=== PATIENT | male | born 1945 | race Caucasian/White ===

== ENCOUNTER 2017-08-14 03:06 | Emergency (ER) | payer MEDICARE, MEDICAID ==
--- NOTE | 2017-08-14 07:45 | RAD ---
LEFT ELBOW 4 VIEWS: Date: 08/14/17 HISTORY: Fall. Left elbow injury. FINDINGS: Radiocapitellar alignment is maintained. Soft tissue swelling of the olecranon is apparent. Triceps e nthesophyte arises from the posterior aspect of the ulna. There are degenerative changes of the elbow . No acute fracture, dislocation, or fluid distention of the joint capsule. IMPRESSION: Chronic-type findings. No acute osseous abnormalities are demonstrated. POS: TPC
== END 2017-08-14 05:56 | disposition home or self-care (01) ==
LOC: ERS 03:06
DX: M70.22 Olecranon bursitis, left elbow (principal); I48.91 Unspecified atrial fibrillation; E11.9 Type 2 diabetes mellitus without complications; E78.5 Hyperlipidemia, unspecified; I10 Essential (primary) hypertension; Z79.82 Long term (current) use of aspirin; Z79.899 Other long term (current) drug therapy; Z79.84 Long term (current) use of oral hypoglycemic drugs; W19.XXXA Unspecified fall, initial encounter; Y92.129 Unspecified place in nursing home as the place of occurrence of the external cause

== ENCOUNTER 2020-02-20 14:55 | Inpatient (IN) | payer MEDICARE, MEDICAID ==
[~2020-02-20 14:55] MED LIST: EPINEPHrine 1 MG/10 ML Abboject SYRINGE ONE
[2020-02-20] MEDS ORDERED: Acetaminophen 650 MG Suppository ONE ×2 (16:16→16:47)
[2020-02-20] MEDS ORDERED: Cefepime 2 GM VIAL ONE (16:16)
[2020-02-20] MEDS ORDERED: Vancomycin 1 GM/200 ML BAG ONE (16:16)
[2020-02-20 17:00] LABS: Hemoglobin 16.3 g/dL (14.0-18.0); Mean Corpuscular HGB CONC 33.5 g/dL (32.0-36.0); Mean Corpuscular Hemoglobin 31.9 pg (27.0-31.0); Mean Corpuscular Volume 95.1 fL (78.0-98.0); Mean Platelet Volume 9.7 fL (7.4-10.4); Platelet Count 327 thou/uL (130-400); RBC Distribution Width 16.7 % (11.5-14.5); Red Blood Cell (RBC) Count 5.12 mill/uL (4.70-6.10); White Blood Cell (WBC) Count 6.5 thou/uL (4.8-10.8)
[2020-02-20 17:16] LABS: Anisocytosis SLIGHT = 6-15 cells (100X) (0-5/hpf); Band 64 % (5-11); Lymphocytes 2 % (21-51); MDiff Complete? YES; Monocytes 10 % (0-10); Neutrophil 15 % (42-75); Platelet Morphology Comment Appears Adequate; Reactive Lymphocytes 9 % (0-10); Reflex for Review?? YES; Schistocytes SLIGHT = 2-5 cells (100X) (0-1/hpf)
[2020-02-20 17:22] LABS: ALT (SGPT) 20 U/L (8-55); AST (SGOT) 22 U/L (5-34); Albumin 3.5 g/dL (3.4-4.8); Alkaline Phosphatase 83 U/L (40-110); Anion Gap 22 mmol/L (10-20); BUN (Urea Nitrogen) 66 mg/dL (8.4-25.7); Calc. Creatinine Clearance 0 mL/min (70-130); Calcium 8.4 mg/dL (7.8-10.44); Carbon Dioxide 14 mmol/L (23-31); Chloride 126 mmol/L (98-107); Estimated GFR-MDRD 19; Globulin 3.9 g/dL (2.4-3.5); Glucose 161 mg/dL (83-110); Protein, Total 7.4 g/dL (5.8-8.1); Sodium 157 mmol/L (136-145)
[2020-02-20 17:43] LABS: CKMB 1.1 ng/mL (0-6.6)
--- NOTE | 2020-02-20 18:41 | RAD ---
PORTABLE CHEST: History: Covid exposure, increased cough. Comparison: 07-23-14 FINDINGS: Heart size within normal limits. Internal defibrillator device is present. There are no definitive in filtrative lung changes seen. Some minimal increased density in the right midlung field and right bas e are present. No signs of overt failure. IMPRESSION: No definitive infiltrative change. Some minimal changes in the right mid and lower lung ruffin are pr obably within normal limits. It is difficult to exclude subtle ground glass opacity. POS: OFF
[2020-02-20] MEDS ORDERED: Norepinephrine 8 MG/0.9% NS 250 ML ONE (19:34)
[2020-02-20] MEDS ORDERED: Rocuronium Bromide 10 MG/ML (10ML VIAL) ONE (19:47)
--- NOTE | 2020-02-20 19:51 | CT ---
CT OF BRAIN PERFORMED WITHOUT CONTRAST ENHANCEMENT: History: Altered mental status. FINDINGS: The ventricular and cisternal system shows some mild atrophy. There are no signs of intracerebral hem orrhage or extraaxial fluid collections. Mastoid air cells are poorly aerated. This appears to be lar ayala developmental. Visualized sinuses show mucosal change in the left sphenoid air cells. IMPRESSION: No acute intracranial abnormality. POS: OFF
[2020-02-20] MEDS ORDERED: Dextrose 50% Abboject 50 ML SYRINGE SLOW IVP PRN (19:52)
[2020-02-20] MEDS ORDERED: Dextrose 5% in Water 1,000 ML IV PRN (19:52)
[2020-02-20] MEDS ORDERED: fentaNYL Citrate/PF 2,000 MCG in Sodium Chloride 0.9% 60 ML IV SCH (20:15)
--- NOTE | 2020-02-20 20:16 | PDOC.EVN ---
Event Note - Event Note Event Note: [id number] HP dictated
--- NOTE | 2020-02-20 20:41 | RAD ---
CHEST ONE VIEW: History: Intubation Comparison: Earlier exam same day FINDINGS: Endotracheal and NG tubes have been placed. The NG tube side hole is at the level of the GE junction and could be advanced slightly. There has been a definite progression in the appearance of the lungs with increasing changes in the right mid and lower lung ruffin. This could represent patchy infiltrat nicolasa changes. It could be a manifestation of some element of edema although its asymmetry would sugges t that this represents infiltrative change. IMPRESSION: 1. Findings that suggest some patchy infiltrates in the right mid and lower lungs, more prominent andrew n on the earlier exam of the same day. Given the history of Covid positive, this could represent Covi d pneumonia. 2. Endotracheal tube is satisfactory position. NG tube could be advanced slightly for more optimal pl acement. POS: OFF
[2020-02-20 20:44] LABS: Actual Bicarbonate (HCO3a) 13.2 mEq/L (22-28); Analyzer IN Cardio ER; Base Excess (BEa) -12.6 mEq/L (-2.0 to +3.0); CO2 Tension 30.9 mmHg (35.0-45.0); Calcium, Ionized (arterial) 1.19 mmol/L (1.12-1.30); Carboxyhemoglobin (COHb) 0.3 gm% (0.0-3.0); O2 Tension (PaO2), arterial 101.5 mmHg (> 70.0)
[2020-02-20 20:51] LABS: pH, Arterial 7.25 (7.35-7.45)
[2020-02-20 20:52] LABS: ALV-art Gradient 216.375 mmHg (0-20); Puncture Site LBA
[2020-02-20 20:59] LABS: Bacteria/HPF 4+ HPF (None Seen); Bilirubin Negative (Negative); Blood, Urine 3+ (Negative); Clarity Extra Turbid (Clear); Glucose, Urine (Dipstick) Normal (Negative); Ketone, Urine Negative (Negative); Leukocyte 500 Leu/uL (Negative); Nitrite 2+ (Negative); Protein, Urine (Dipstick) 300 mg/dL (Neg-Trace); RBC/HPF Greater than 50 HPF (0-3); Specific Gravity, Urine 1.019 (1.002-1.036); Squamous Epithelial None Seen HPF (0-3); Urobilinogen Normal mg/dL (Less than 2); WBC/HPF Greater than 50 HPF (0-3); pH, Urine 7.5 (5.0-9.0)
[2020-02-20] MEDS ORDERED: Heparin 5,000 UNITS/ML VIAL SC SCH (21:00)
--- NOTE | 2020-02-20 21:11 | HP ---
CHIEF COMPLAINT: Shortness of breath and low oxygen saturation. HISTORY OF PRESENT ILLNESS: Mr. Ernandez is a 74-year-old male with past medical history of atrial fibrillation, type 2 diabetes, hypertension, hypothyroidism, among others was brought from [facility] for evaluation of shortness of breath and low oxygen saturation. The patient has depressed level of consciousness on presentation to the emergency room. The patient's oxygen saturation was low, need to be placed on a non-rebreather mask. Current oxygen saturation is 92% on a non-rebreather mask. Also during the history in the emergency room, his blood pressure dropped. Lab work and chest x-ray showed questionable right lower lobe opacities. The patient was tested positive for COVID-19, exact date is unknown. Also, patient was found to be septic with elevated lactic acid of 3.4, patient was found to be in acute renal failure with a BUN of 66, creatinine of 3.2, hypernatremic with a sodium of 157. CT of the brain no acute finding. The patient is being admitted to the hospital for further management. PAST MEDICAL HISTORY: 1. Atrial fibrillation. 2. Diabetes mellitus, type 2. 3. Hypertension. 4. Hyperlipidemia. 5. Glaucoma. 6. Dysphagia. 7. Hypothyroidism. 8. Cellulitis. PAST SURGICAL HISTORY: Unknown. SOCIAL HISTORY: The patient lives in a long-term facility. No further history can be obtained at this time. FAMILY HISTORY: Unknown. ALLERGIES: NO KNOWN ALLERGIES. CURRENT MEDICATIONS: See home medication reconciliation form for updated medications. REVIEW OF SYSTEMS: Unable to obtain due to patient's underlying medical condition. PHYSICAL EXAMINATION: GENERAL: The patient in moderate respiratory distress. Does not follow commands. VITAL SIGNS: Blood pressure is 88/57, pulse is 94, respiratory rate is 24, temperature 101.2. Oxygen saturation is 92% on nonrebreather. HEAD AND NECK: Normocephalic. NECK: Supple. CHEST: Coarse bilateral breath sounds. Respirations are labored. HEART: Irregularly irregular. ABDOMEN: Soft. Bowel sounds present. NEUROLOGIC: The patient does not follow commands. Moving extremities PSYCHIATRIC: Unable to assess. EXTREMITIES: No clubbing, no cyanosis. LABORATORY DATA: As mentioned above in the history of present illness. IMAGING STUDIES: As mentioned above in the history of present illness. ASSESSMENT AND PLAN: 1. Acute hypoxic respiratory failure. 2. Healthcare associated pneumonia versus COVID-19 infection. 3. COVID-19 virus infection. The patient was tested positive. Exact date is unknown at this time. 4. Diabetes mellitus type 2. 5. Hypernatremia. 6. Acute renal failure. 7. Acute encephalopathy, metabolic. 8. History of hypertension. 9. Atrial fibrillation. PLAN: 1. The patient will be admitted to the hospital. 2. The patient is getting his second liter of fluid bolus right now, I discussed the case with the ER physician. If the patient remains hypotensive, the patient will need central venous catheter insertion and started on vasopressors. 3. We will get a stat arterial blood gases to evaluate for the need for intubation. 4. Septic workup done in the ED including blood cultures. 5. Broad-spectrum IV antibiotics for possible healthcare-associated pneumonia. 6. Isolation precautions for now. 7. Monitor kidney function and urine output. 8. Consider Nephrology consultation in a.m. 9. Consult Pulmonary for evaluation of further recommendations. 10. Reconcile home medications. 11. DVT prophylaxis as appropriate. 12. GI prophylaxis. 13. Expected length of stay, 3 midnights or more. Job ID: [id number]
[2020-02-20 21:46] LABS: Glucose 182 mg/dL (83-110)
[2020-02-20] MEDS ORDERED: Acetaminophen 325 MG Suppository ONE (22:44)
[2020-02-20] MEDS: Dextrose 5 %-0.45 % NaCl 1,000 ML IV SCH (22:50)
[2020-02-20] MEDS: Acetaminophen 650 MG Suppository PR PRN (22:51)
[2020-02-21] MEDS ORDERED: Norepinephrine 8 MG/0.9% NS 250 ML ONE (00:59)
[2020-02-21 01:47] LABS: Glucose 285 mg/dL (83-110)
[2020-02-21] MEDS ORDERED: cefTRIAXone\\ROCEPHIN 1 GM VIAL ONE (04:29)
[2020-02-21] MEDS: Cefepime 1 GM in Sodium Chloride 0.9% 100 ML IVPB SCH ×2 (04:34→17:17)
[2020-02-21] MEDS ORDERED: Vasopressin 20 UNIT, Admixture Fee 1 EACH in Sodium Chloride 0.9% 50 ML IV SCH (05:15)
[2020-02-21 05:17] LABS: Glucose 363 mg/dL (83-110)
[2020-02-21] MEDS ORDERED: EPINEPHrine 1 MG/ML AMP ONE ×2 (05:23)
[2020-02-21 05:24] LABS: ALT (SGPT) 20 U/L (8-55); AST (SGOT) 20 U/L (5-34); Albumin 2.9 g/dL (3.4-4.8); Alkaline Phosphatase 65 U/L (40-110); Anion Gap 19 mmol/L (10-20); BUN (Urea Nitrogen) 74 mg/dL (8.4-25.7); Bilirubin, Total 1.2 mg/dL (0.2-1.2); Calc. Creatinine Clearance 0 mL/min (70-130); Calcium 8.2 mg/dL (7.8-10.44); Carbon Dioxide 13 mmol/L (23-31); Chloride 124 mmol/L (98-107); Estimated GFR-MDRD 14; Globulin 3.7 g/dL (2.4-3.5); Glucose 363 mg/dL (83-110); Potassium 4.4 mmol/L (3.5-5.1); Protein, Total 6.6 g/dL (5.8-8.1); Sodium 152 mmol/L (136-145)
[2020-02-21] MEDS ORDERED: EPINEPHrine 4 MG in Dextrose 5% in Water 250 ML IV SCH (05:30)
[2020-02-21 05:36] LABS: Band 71 % (5-11); Burr Cells SLIGHT = 2-5 cells (100X) (0-1/hpf); Hemoglobin 14.9 g/dL (14.0-18.0); Lymphocytes 3 % (21-51); MDiff Complete? YES; Mean Corpuscular HGB CONC 32.5 g/dL (32.0-36.0); Mean Corpuscular Hemoglobin 30.8 pg (27.0-31.0); Mean Corpuscular Volume 94.6 fL (78.0-98.0); Mean Platelet Volume 9.6 fL (7.4-10.4); Monocytes 6 % (0-10); Neutrophil 20 % (42-75); Platelet Count 346 thou/uL (130-400); RBC Distribution Width 17.1 % (11.5-14.5); Red Blood Cell (RBC) Count 4.83 mill/uL (4.70-6.10); White Blood Cell (WBC) Count 24.8 thou/uL (4.8-10.8)
--- NOTE | 2020-02-21 05:42 | PDOC.EVN ---
Event Note - Event Note Event Note: patient remains hypotensive inspite of max levophed, vasopressin. epi drip ordered. try to call the family number in chart but a message says disconnected. poor prognosis
[2020-02-21] MEDS ORDERED: Acetaminophen 325 MG Suppository ONE (06:45)
[2020-02-21] MEDS: Acetaminophen 650 MG Suppository PR PRN (06:53)
[2020-02-21] MEDS: Famotidine/PF 20 mg/2ml Vial SLOW IVP SCH (09:12)
[2020-02-21] MEDS: Dextrose 5 %-0.45 % NaCl 1,000 ML IV SCH ×2 (09:13→17:23)
[2020-02-21] MEDS: Insulin Regular 300 UNITS/3 ML VIAL SC PRN ×2 (11:00→17:09)
[2020-02-21] MEDS: Dexamethasone 6 MG in Sodium Chloride 0.9% 50 ML IVPB SCH (11:10)
--- NOTE | 2020-02-21 11:33 | CON ---
DATE OF CONSULTATION: HISTORY OF PRESENT ILLNESS: Alok Ernandez is a 74-year-old elderly gentleman, who apparently is from the halfway, was brought in with hypertension and sepsis syndrome. He arrived yesterday at 1524 hours. He is now intubated in the ICU on three pressors. He came from [facility] with a temperature 100.4 and saturations 87% on room air. He was placed in a nonrebreather, saturations were 92%. Obviously, there is no additional information obtained at this time. In the process of trying to contact his family. He was diagnosed to have coronavirus positive pneumonia unknown when. He has multiorgan failure. Apparently, there is some evidence of increasing shortness of breath. PAST MEDICAL HISTORY: Pertinent for what looks like chronic renal failure, congestive heart failure, diabetes, chronic atrial fibrillation. Hypothyroidism. He has been in this institution before. Review of his previous notes appears he has had a cardiac cath in the past. His CT head was done, which shows unremarkable. MEDICATIONS: His nursing medications includes; 1. Metformin 500 twice a day. 2. Losartan 50. 3. Synthroid. 4. Lasix 20. 5. Coreg 25 b.i.d. 6. Aspirin. 7. Amiodarone twice a day. ALLERGIES: APPARENTLY UNKNOWN. PHYSICAL EXAMINATION: VITAL SIGNS: His blood pressure is 90/50, saturations 100%, temperature 100, and respiratory rate 18. CHEST: Decreased breath sounds. I hear no wheezing. CARDIAC: Normal S1 and S2. No gallops. ABDOMEN: Soft. NEUROLOGIC: He is encephalopathic. LABORATORY DATA: White count 24,000, H and H 14 and 45, platelet count is 345, 20 neutrophils, and 71 bands. A pO2 of 101, pCO2 of 30, pH 7.25, rate of 12, 50%, 550 tidal volume, PEEP of 5. Sodium 150, BUN and creatinine 74 and 4.2. Respiratory failure x-ray on admission was normal. Subsequent x-ray shows bilateral infiltrates. He has multiple lab abnormality including creatinine is 4 and BUN is 74. IMPRESSION AND PLAN: 1. Multiorgan failure and sepsis syndrome. 2. Worthington positive pneumonia. 3. Congestive heart failure, renal failure, electrolyte imbalance, advanced age, diabetes. I am in the process of trying to contact family members. He is on Levophed pressors. Still a full code. Stress dose hydrocortisone being added at this stage, along with volume. He may require input from Cardiology and Nephrology if he remains viable and still a full code in the next several days. This is a 45-minute critical care time. Job ID: [id number]
[2020-02-21] MEDS: Hydrocortisone Sod Succ/PF 100 mg/2 ml Vial IVP SCH ×3 (13:36→23:36)
--- NOTE | 2020-02-21 13:49 | PDOC.HOSPP ---
- Subjective Encounter Date: 02/21/20 Encounter Time: 13:48 Subjective: Mr. Ernandez was seen today in follow-up of respiratory failure and sepsis. He is intubated, He will respond to pain, by withdrawing his legs. - Objective Vital Signs & Weight: Vital Signs (12 hours) Pulse Resp BP 02/21/20 12:00 20 02/21/20 11:05 60 107/58 L 02/21/20 10:00 20 02/21/20 08:00 74 94/53 L 02/21/20 07:40 21 H Weight Weight 227 lb 1.218 oz Most Recent Monitor Data Heart Rate from ECG 60 NIBP 100/53 NIBP BP-Mean 68 Respiration from ECG 20 SpO2 100 I&O: 02/20/20 02/21/20 02/22/20 06:59 06:59 06:59 Output Total 45 Balance -45 Result Diagrams: 02/21/20 04:44 02/21/20 04:44 Additional Labs: Accuchecks 02/21/20 11:33 POC Glucose 296 H Hospitalist ROS - Medication Medications: Active Medications Generic Name Dose Route Start Last Admin Trade Name Freq PRN Reason Stop Dose Admin Acetaminophen 650 mg 02/20/20 19:42 02/21/20 06:53 Acetaminophen 650 Mg Suppository [place] 650 mg Q4H PRN Administration Headache/Fever/Mild Pain (1-3) Famotidine 20 mg 02/21/20 09:00 02/21/20 09:12 Famotidine/Pf 20 Mg/2ml Vial SLOW IVP 20 mg DAILY BEBO Administration Hydrocortisone Sodium Succinate 50 mg 02/21/20 12:00 02/21/20 13:36 Hydrocortisone Sod Succ/Pf 100 Mg/2 Ml Vial IVP 02/28/20 12:01 50 mg Q6HR BEBO Administration Cefepime HCl 1 gm/ Sodium 100 mls @ 200 mls/hr 02/21/20 04:00 02/21/20 04:34 Chloride IVPB 100 mls 0400,1600 BEBO Administration Dextrose/Sodium Chloride 1,000 mls @ 100 mls/hr 02/20/20 20:00 02/21/20 09:13 D5 1/2 Ns IV 1,000 mls .Q10H BEBO Administration Fentanyl Citrate 2,000 mcg/ 100 mls @ 0 mls/hr 02/20/20 20:15 02/21/20 11:24 Sodium Chloride IV 02/21/20 20:16 100 mls INF BEBO Administration Protocol Per Protocol Dexamethasone 6 mg/ Sodium 50.6 mls @ 100 mls/hr 02/21/20 09:00 02/21/20 11:10 Chloride IVPB 50.6 mls DAILY BEBO Administration Vasopressin 20 unit/ 51 mls @ 0 mls/hr 02/21/20 05:15 02/21/20 05:06 Miscellaneous Medication 1 IV 51 mls each/ Sodium Chloride INF BEBO Administration Protocol As Directed Epinephrine 4 mg/ Dextrose/ 254 mls @ 0 mls/hr 02/21/20 05:30 02/21/20 05:30 Water IV 254 mls INF BEBO Administration Protocol Titrate - Exam General Appearance: ill appearing Eye: anicteric sclera Heart: RRR, no murmur, no gallops, no rubs, normal peripheral pulses Respiratory: rales (at both bases) Gastrointestinal: soft, non-tender, non-distended, normal bowel sounds, no palpable masses, no hepatomegaly Extremities: no cyanosis, no clubbing, 1+ LE edema Hosp A/P (1) Acute respiratory failure with hypoxemia Code(s): J96.01 - ACUTE RESPIRATORY FAILURE WITH HYPOXIA Status: Acute (2) Pneumonia due to COVID-19 virus Code(s): U07.1 - COVID-19; J12.89 - OTHER VIRAL PNEUMONIA Status: Acute (3) Septic shock Code(s): A41.9 - SEPSIS, UNSPECIFIED ORGANISM; R65.21 - SEVERE SEPSIS WITH SEPTIC SHOCK Status: Acute (4) Acute renal failure Status: Acute (5) Atrial fibrillation Code(s): I48.91 - UNSPECIFIED ATRIAL FIBRILLATION Status: Chronic (6) Diabetes mellitus type 2 in nonobese Code(s): E11.9 - TYPE 2 DIABETES MELLITUS WITHOUT COMPLICATIONS Status: Chronic (7) Hypertension Code(s): I10 - ESSENTIAL (PRIMARY) HYPERTENSION Status: Chronic - Plan * Acute respiratory failure due to COVID pneumonia- he is requiring mechanical ventilation * [facility] has evaluated the patient * Septic shock with multi-organ failure- due to COVID, and now 2/2 blood cultures are positive with gram positive cocci- Will continue broad spectrum antibiotics, and Vancomycin to cover MRSA pending identification. He continues to require pressor support for his blood pressure. He has developed acute kidney injury, with a GFR placing him in the range for dialysis. * Acute kidney injury- due to sepsis- may need Nephrology consult- unfortunately he has no known family. Currently the treating team is trying to locate family members to aid in decision making * DM- continue SSI * HTN- currently hypotensive on Vasopressin * The patient's prognosis is grave. He has COVID oneumonia, with several risk factors which place him at risk for a poor outcome. He is already on mechanical ventilator support. He has multi-organ failure. He is not likely to survive this hospital stay. He is a candidate for Palliative care and the palliative care team has been consulted.
[2020-02-21] MEDS ORDERED: Vancomycin HCl 1 GM in Sodium Chloride 0.9% 250 ML 300 ML IVPB SCH (17:00)
[2020-02-21 18:50] LABS: Vancomycin, Random 7.8 ug/mL (See Comment)
[2020-02-21] MEDS ORDERED: Vancomycin HCl 1.25 GM in Sodium Chloride 0.9% 250 ML 250 ML IVPB SCH (20:00)
[2020-02-21] MEDS ORDERED: DISCONTINUE PREVIOUS NARCOTIC PAIN MEDICATIONS AND BENZODIAZEPINES FS SCH (20:45)
[2020-02-21] MEDS ORDERED: Propofol 1,000 MG/100 ML VIAL IV PRN (20:45)
[2020-02-21] MEDS ORDERED: Fentanyl BOLUS 250 ML IVPB PRN (20:45)
[2020-02-21] MEDS ORDERED: Propofol BOLUS 1,000 MG/100 ML VIAL IV PRN (20:45)
[2020-02-21] MEDS ORDERED: Morphine 2 MG/ML VIAL SLOW IVP PRN (20:45)
[2020-02-21] MEDS: Sodium Chloride 0.45% 1,000 ML IV SCH (21:06)
[2020-02-21] MEDS: Heparin 5,000 UNITS/ML VIAL SC SCH (21:07)
[2020-02-21] MEDS: fentaNYL Citrate/PF 2,000 MCG in Sodium Chloride 0.9% 60 ML IV SCH (21:48)
[2020-02-22] MEDS: Insulin Regular 300 UNITS/3 ML VIAL SC PRN ×5 (01:34→23:12)
[2020-02-22 04:23] LABS: #Lymphocytes 0.8 thou/uL (1.20-3.40); #Monocytes 0.6 thou/uL (0.11-0.59); #Neutrophils 16.2 thou/uL (1.40-6.50); %Basophils 0.2 % (0.0-1.0); %Eosinophils 0.1 % (0.0-10.0); %Lymphocytes 4.7 % (21.0-51.0); %Monocytes 3.3 % (0.0-10.0); %Neutrophils 91.7 % (42.0-75.0); Hemoglobin 13.4 g/dL (14.0-18.0); Mean Corpuscular HGB CONC 31.4 g/dL (32.0-36.0); Mean Corpuscular Hemoglobin 29.6 pg (27.0-31.0); Mean Corpuscular Volume 94.2 fL (78.0-98.0); Mean Platelet Volume 9.2 fL (7.4-10.4); Platelet Count 246 thou/uL (130-400); Red Blood Cell (RBC) Count 4.53 mill/uL (4.70-6.10); White Blood Cell (WBC) Count 17.7 thou/uL (4.8-10.8)
[2020-02-22 04:39] LABS: Anion Gap 13 mmol/L (10-20); BUN (Urea Nitrogen) 66 mg/dL (8.4-25.7); Calc. Creatinine Clearance 35 mL/min (70-130); Calcium 8.5 mg/dL (7.8-10.44); Carbon Dioxide 15 mmol/L (23-31); Estimated GFR-MDRD 23; Glucose 268 mg/dL (83-110); Potassium 3.6 mmol/L (3.5-5.1); Sodium 152 mmol/L (136-145)
[2020-02-22] MEDS: Cefepime 1 GM in Sodium Chloride 0.9% 100 ML IVPB SCH (04:57)
[2020-02-22 04:59] LABS: Chloride 128 mmol/L (98-107)
[2020-02-22] MEDS: Hydrocortisone Sod Succ/PF 100 mg/2 ml Vial IVP SCH ×3 (05:34→17:32)
[2020-02-22] MEDS: Sodium Chloride 0.45% 1,000 ML IV SCH (05:35)
[2020-02-22] MEDS: fentaNYL Citrate/PF 2,000 MCG in Sodium Chloride 0.9% 60 ML IV SCH (07:37)
[2020-02-22 07:48] LABS: Base Excess (BEa) -10.9 mEq/L (-2.0 to +3.0); Calcium, Ionized (arterial) 1.24 mmol/L (1.12-1.30); Carboxyhemoglobin (COHb) 0.5 gm% (0.0-3.0); Hemoglobin (Hb) 13.6 g/dL (14.0-18.0); O2 Tension (PaO2), arterial 169.1 mmHg (> 70.0); Potassium - ABG Lab 4.31 mmol/L (3.70-5.30); pH, Arterial 7.38 (7.35-7.45)
[2020-02-22 07:56] LABS: ALV-art Gradient 303.875 mmHg (0-20); CO2 Tension 20.9 mmHg (35.0-45.0); Puncture Site RRA
--- NOTE | 2020-02-22 08:01 | RAD ---
PORTABLE CHEST: Date: 02/22/2020 HISTORY: Respiratory distress. COMPARISON: Prior day's study. History of COVID exposure. FINDINGS: Endotracheal tube is in satisfactory position. There is some opacification in the right infrahilar re gion and some minimal changes in the left base developing since the prior exam. IMPRESSION: Some right lower lobe infiltrate and some early atelectasis or infiltrate seen in the left base. Matute ges have progressed as compared to the prior study. POS: OFF
[2020-02-22] MEDS: Famotidine/PF 20 mg/2ml Vial SLOW IVP SCH (08:58)
[2020-02-22] MEDS: Heparin 5,000 UNITS/ML VIAL SC SCH ×2 (08:58→21:02)
[2020-02-22] MEDS: Dexamethasone 6 MG in Sodium Chloride 0.9% 50 ML IVPB SCH (09:00)
--- NOTE | 2020-02-22 09:31 | PRG ---
DATE OF SERVICE: 02/22/2020 SUBJECTIVE: Alok Ernandez is a 74-year-old gentleman, who remains in the ICU. OBJECTIVE: VITAL SIGNS: Pulse 80, blood pressure 114/60, sats 100%, and respirations 11. HEENT: He is very encephalopathic. CHEST: Decreased breath sounds. No wheezing. No crackles. CARDIAC: Normal S1 and S2. ABDOMEN: No masses. LABORATORY DATA: White count 17,000, H and H unremarkable, and platelet count is normal. PO2 is 169, pCO2 of 20, and pH 7.38. Creatinine is 2.7, BUN is 66, and glucose is 268. IMPRESSION: 1. Sepsis. 2. Hypertension. 3. Worthington positive pneumonia. 4. Cardiomyopathy. 5. Renal failure. 6. Advanced age. PLAN: We have no family members to contact regarding the patient's care. At this stage, he needs supportive care. He has coronal positive associated possibly pneumonia, though his x-ray looks much improved. He is on Decadron for that. He is getting stress dose of steroids, broad-spectrum antibiotics, and pressors. His prognosis is poor. I may probably start nutrition in the next 24 to 48 hours. One-half hour of critical care time. Job ID: [id number]
[2020-02-22] MEDS: Dextrose 5% in Water 1,000 ML IV SCH ×2 (10:51→19:17)
[2020-02-22 19:51] LABS: Vancomycin, Trough 12.7 ug/mL
[2020-02-22] MEDS ORDERED: Vancomycin HCl 1.25 GM in Sodium Chloride 0.9% 250 ML 250 ML IVPB SCH (20:15)
[2020-02-23] MEDS: Hydrocortisone Sod Succ/PF 100 mg/2 ml Vial IVP SCH ×5 (00:18→22:54)
[2020-02-23 02:56] LABS: Anion Gap 15 mmol/L (10-20); BUN (Urea Nitrogen) 63 mg/dL (8.4-25.7); Calc. Creatinine Clearance 38 mL/min (70-130); Calcium 8.7 mg/dL (7.8-10.44); Carbon Dioxide 16 mmol/L (23-31); Chloride 120 mmol/L (98-107); Estimated GFR-MDRD 25; Glucose 378 mg/dL (83-110); Potassium 3.9 mmol/L (3.5-5.1); Sodium 147 mmol/L (136-145)
[2020-02-23 03:08] LABS: Band 62 % (5-11); Burr Cells MODERATE= 6-15 cells (100X) (0-1/hpf); Hemoglobin 14.4 g/dL (14.0-18.0); Lymphocytes 1 % (21-51); MDiff Complete? YES; Mean Corpuscular HGB CONC 31.7 g/dL (32.0-36.0); Mean Corpuscular Hemoglobin 30.3 pg (27.0-31.0); Mean Corpuscular Volume 95.6 fL (78.0-98.0); Mean Platelet Volume 9.3 fL (7.4-10.4); Metamyelocyte 1 % (0-0); Monocytes 3 % (0-10); Neutrophil 33 % (42-75); Platelet Count 320 thou/uL (130-400); RBC Distribution Width 17.8 % (11.5-14.5); Red Blood Cell (RBC) Count 4.77 mill/uL (4.70-6.10); White Blood Cell (WBC) Count 31.4 thou/uL (4.8-10.8)
[2020-02-23] MEDS ORDERED: Sodium Chloride 0.9% 500 ML IVPB SCH (03:45)
[2020-02-23] MEDS: Insulin Regular 300 UNITS/3 ML VIAL SC PRN ×4 (05:01→20:37)
[2020-02-23] MEDS: Dextrose 5% in Water 1,000 ML IV SCH ×2 (05:02→16:39)
[2020-02-23] MEDS: fentaNYL Citrate/PF 2,000 MCG in Sodium Chloride 0.9% 60 ML IV SCH (05:36)
--- NOTE | 2020-02-23 07:53 | RAD ---
Portable frontal chest radiograph: 02/23/2020 COMPARISON: 02/22/2020 HISTORY: Respiratory distress, ventilated patient, Covid exposure FINDINGS: Endotracheal tube and nasogastric tube in proper position. Stable dual lead transvenous AIC D. There is hazy interstitial and alveolar opacity in the right perihilar region/inferior aspect of the right upper lobe medially, worsened when compared to the prior exam. Similar focal airspace disea se noted within the medial right lung base, likely in the right lower lobe region, slightly worsened as well. There is gaseous distention of the stomach, only partially imaged on this exam. IMPRESSION: Worsening opacity in the right perihilar region and right lung base. Stable lines and tub es. Gaseous distention of the stomach.
[2020-02-23 07:54] LABS: Actual Bicarbonate (HCO3a) 14.5 mEq/L (22-28); CO2 Tension 35.3 mmHg (35.0-45.0); Carboxyhemoglobin (COHb) 0.2 gm% (0.0-3.0); Hemoglobin (Hb) 14.5 g/dL (14.0-18.0); O2 Tension (PaO2), arterial 95.3 mmHg (> 70.0); Potassium - ABG Lab 3.51 mmol/L (3.70-5.30)
[2020-02-23 07:56] LABS: pH, Arterial 7.23 (7.35-7.45)
[2020-02-23 07:57] LABS: ALV-art Gradient 217.075 mmHg (0-20)
[2020-02-23] MEDS: Famotidine/PF 20 mg/2ml Vial SLOW IVP SCH (08:12)
[2020-02-23] MEDS: Dexamethasone 6 MG in Sodium Chloride 0.9% 50 ML IVPB SCH (08:12)
[2020-02-23] MEDS: Heparin 5,000 UNITS/ML VIAL SC SCH ×2 (08:12→19:00)
[2020-02-23] MEDS ORDERED: Cefepime 0.5 GM, Admixture Fee 1 EACH in Sodium Chloride 0.9% 100 ML IVPB SCH (09:00)
[2020-02-23] MEDS ORDERED: Insulin Glargine 10 UNITS in Pre-Filled Syringe 1 EACH SC SCH (09:00)
--- NOTE | 2020-02-23 13:39 | PRG ---
DATE OF SERVICE: 02/23/2020 SUBJECTIVE: Alok Ernandez is a _[id number] gentleman in the ICU, intubated in the vent, sedated on fentanyl. He is pretty much encephalopathic. He is jerking around. His sedation was withheld. OBJECTIVE: VITAL SIGNS: Pulse 66. He is on Levophed. Blood pressure 90/40, saturations are 99% . His I's and O's consistently positive. CHEST: Bilateral rhonchi. CARDIAC: Normal S1 and S2. No gallops. ABDOMEN: No masses. LABORATORY DATA: White count 31,000, hemoglobin and hematocrit are 14 and 45, platelet count is normal PO2 of 95, [id number] ph 7.34. BUN and creatinine elevated. Urine is growing Proteus, to which he is sensitive on the present antibiotic. His x-ray shows minimal bilateral infiltrates. ASSESSMENT AND PLAN: Sepsis syndrome, respiratory acidosis, renal failure, marked leukocytosis. His coronavirus pneumonia is probably not causing any issues at this stage. More than likely, his sepsis syndrome is a main issue, though he is covered with adequate antibiotics and supportive care. I do not see any evidence of any staph in his blood, though he is still on vancomycin, which we will continue until we have any definitive diagnosis. He is on DVT prophylaxis, supportive care. His prognosis is grave. We are going to talk to his office automation clerk. In the meantime, nutrition, PT. One-half hour of critical care time. Job ID: [id number] [facility]ITAL[facility]runa
--- NOTE | 2020-02-23 14:32 | PDOC.HOSPP ---
- Subjective Encounter Date: 02/23/20 Encounter Time: 14:31 Subjective: Mr. Ernandez was seen today in follow-up of respiratory failure. He is intubated. No problems voiced by staff. - Objective Vital Signs & Weight: Vital Signs (12 hours) Temp Pulse Resp Pulse Ox 02/23/20 14:00 13 02/23/20 13:14 67 02/23/20 12:00 15 02/23/20 10:38 71 02/23/20 10:00 12 02/23/20 08:00 13 02/23/20 07:45 62 02/23/20 07:25 100 02/23/20 06:00 16 02/23/20 04:00 98.8 F 14 02/23/20 03:10 68 Weight Admit Weight 227 lb Weight 227 lb 1.218 oz Most Recent Monitor Data Heart Rate from ECG 60 NIBP 94/52 NIBP BP-Mean 66 Respiration from ECG 15 SpO2 99 I&O: 02/22/20 02/23/20 02/24/20 06:59 06:59 06:59 Intake Total 3777.1 4007.4 120 Output Total 1145 985 250 Balance 2632.1 3022.4 -130 Result Diagrams: 02/23/20 02:00 02/23/20 02:00 Additional Labs: Accuchecks 02/23/20 02/23/20 02/23/20 09:48 09:48 04:14 POC Glucose 309 H 309 H 348 H 02/22/20 02/22/20 22:47 16:05 POC Glucose 260 H 208 H Hospitalist ROS - Medication Medications: Active Medications Generic Name Dose Route Start Last Admin Trade Name Eric PRN Reason Stop Dose Admin Acetaminophen 650 mg 02/20/20 19:42 02/21/20 06:53 Acetaminophen 650 Mg Suppository [place] 650 mg Q4H PRN Administration Headache/Fever/Mild Pain (1-3) Famotidine 20 mg 02/21/20 09:00 02/23/20 08:12 Famotidine/Pf 20 Mg/2ml Vial SLOW IVP 20 mg DAILY BEBO Administration Heparin Sodium (Porcine) 5,000 units 02/21/20 21:00 02/23/20 08:12 Heparin 5,000 Units/Ml Vial SC 5,000 units BID BEBO Administration Hydrocortisone Sodium Succinate 50 mg 02/21/20 12:00 02/23/20 11:38 Hydrocortisone Sod Succ/Pf 100 Mg/2 Ml Vial IVP 02/28/20 12:01 50 mg Q6HR BEBO Administration Dexamethasone 6 mg/ Sodium 50.6 mls @ 100 mls/hr 02/21/20 09:00 02/23/20 08:12 Chloride IVPB 50.6 mls DAILY BEBO Administration Norepinephrine Bitartrate 16 266 mls @ 0 mls/hr 02/21/20 04:45 02/23/20 05:35 mg/ Dextrose/Water IVPB 266 mls INF BEBO Administration Protocol Titrate Vasopressin 20 unit/ 51 mls @ 0 mls/hr 02/21/20 05:15 02/21/20 05:06 Miscellaneous Medication 1 IV 51 mls each/ Sodium Chloride INF BEBO Administration Protocol As Directed Epinephrine 4 mg/ Dextrose/ 254 mls @ 0 mls/hr 02/21/20 05:30 02/21/20 05:30 Water IV 254 mls INF BEBO Administration Protocol Titrate Fentanyl Citrate 2,000 mcg/ 100 mls @ 0 mls/hr 02/21/20 20:45 02/23/20 05:36 Sodium Chloride IV 03/22/20 20:45 100 mls INF BEBO Administration Protocol Per Protocol Dextrose/Water 1,000 mls @ 100 mls/hr 02/22/20 09:15 02/23/20 05:02 D5w IV 1,000 mls .Q10H BEBO Administration Cefepime HCl 0.5 gm/ 100 mls @ 200 mls/hr 02/23/20 09:00 02/23/20 08:13 Miscellaneous Medication 1 IVPB 100 mls each/ Sodium Chloride 0900 BEBO Administration Insulin Glargine 10 units/ 0.1 mls @ 0 mls/hr 02/23/20 09:00 02/23/20 09:41 Miscellaneous Medication SC 0.1 mls QAM BEBO Administration Insulin Human Regular 0 units 02/20/20 19:52 02/23/20 10:22 Insulin Regular 300 Units/3 Ml Vial SC 5 unit .MILD SLIDING SCALE PRN Administration Mild Correctional Scale - Exam Eye: PERRL, anicteric sclera Heart: RRR, no murmur, no gallops, normal peripheral pulses Respiratory: rales, rhonchi Gastrointestinal: soft, non-tender, non-distended, normal bowel sounds, no palpable masses, no hepatomegaly, no guarding, no rigidity Extremities: 1+ LE edema Hosp A/P (1) Acute respiratory failure with hypoxemia Code(s): J96.01 - ACUTE RESPIRATORY FAILURE WITH HYPOXIA Status: Acute (2) Pneumonia due to COVID-19 virus Code(s): U07.1 - COVID-19; J12.89 - OTHER VIRAL PNEUMONIA Status: Acute (3) Septic shock Code(s): A41.9 - SEPSIS, UNSPECIFIED ORGANISM; R65.21 - SEVERE SEPSIS WITH SEPTIC SHOCK Status: Acute (4) Acute renal failure Status: Acute (5) Atrial fibrillation Code(s): I48.91 - UNSPECIFIED ATRIAL FIBRILLATION Status: Chronic (6) Diabetes mellitus type 2 in nonobese Code(s): E11.9 - TYPE 2 DIABETES MELLITUS WITHOUT COMPLICATIONS Status: Chronic (7) Hypertension Code(s): I10 - ESSENTIAL (PRIMARY) HYPERTENSION Status: Chronic - Plan * Acute respiratory failure due to Pneumonia. He is also COVID positive he is requiring mechanical ventilation * Dr. Drake's evaluation noted. He is COVID positive, but he may not have respiratory failure due to this. * Septic shock with multi-organ failure- and now 2/2 blood cultures are positive with gram positive cocci- Will continue broad spectrum antibiotics, and Vancomycin * Acute kidney injury- improving * DM- blood glucose has been elevated- will add Lantus insulin and continue the SSI * Still no Surrogate decision maker, or family available
[2020-02-23] MEDS ORDERED: Albumin 25% 25 GM/100 ML BOT IVPB SCH (16:00)
[2020-02-23 19:31] LABS: Vancomycin, Random 19.2 ug/mL (See Comment)
[2020-02-23] MEDS ORDERED: Insulin Glargine 5 UNITS in Pre-Filled Syringe 1 EACH SC SCH (21:00)
[2020-02-23] MEDS ORDERED: Vancomycin 1 GM in Premix Bag 1 BAG IVPB SCH (22:00)
[2020-02-24] MEDS: Dextrose 5% in Water 1,000 ML IV SCH (02:07)
[2020-02-24] MEDS: Insulin Regular 300 UNITS/3 ML VIAL SC PRN ×4 (03:43→22:33)
[2020-02-24 04:57] LABS: Anion Gap 14 mmol/L (10-20); BUN (Urea Nitrogen) 69 mg/dL (8.4-25.7); Calc. Creatinine Clearance 32 mL/min (70-130); Calcium 8.5 mg/dL (7.8-10.44); Carbon Dioxide 15 mmol/L (23-31); Chloride 118 mmol/L (98-107); Estimated GFR-MDRD 21; Glucose 392 mg/dL (83-110); Potassium 3.7 mmol/L (3.5-5.1); Sodium 143 mmol/L (136-145)
[2020-02-24] MEDS: Hydrocortisone Sod Succ/PF 100 mg/2 ml Vial IVP SCH ×4 (05:26→20:00)
[2020-02-24] MEDS: fentaNYL Citrate/PF 2,000 MCG in Sodium Chloride 0.9% 60 ML IV SCH (05:52)
[2020-02-24 06:23] LABS: Band 48 % (5-11); Lymphocytes 5 % (21-51); MDiff Complete? YES; Mean Corpuscular HGB CONC 32.1 g/dL (32.0-36.0); Mean Corpuscular Hemoglobin 30.9 pg (27.0-31.0); Mean Corpuscular Volume 96.3 fL (78.0-98.0); Mean Platelet Volume 9.1 fL (7.4-10.4); Metamyelocyte 4 % (0-0); Monocytes 7 % (0-10); Neutrophil 36 % (42-75); Platelet Count 221 thou/uL (130-400); Red Blood Cell (RBC) Count 4.52 mill/uL (4.70-6.10); White Blood Cell (WBC) Count 19.7 thou/uL (4.8-10.8)
--- NOTE | 2020-02-24 08:11 | RAD ---
1 VIEW CHEST: Date: 02/24/2020 HISTORY: On ventilator. Follow-up evaluation. COMPARISON: 02/23/2020. FINDINGS: Endotracheal tube and nasogastric tube are stable in position. The most proximal side hole of the end otracheal tube is likely in the region of the GE junction, and nasogastric tube should be advanced. D ual lead left subclavian AICD device remains in place. Cardiac silhouette is stable in size. There is more confluent opacity now seen in the right perihilar location, predominantly in the right mid lung zone and at the right lung base compared to the prior study, with mild increase in interstitial opac ities bilaterally. No other interval change. IMPRESSION: 1. Worsening air space opacities in the right perihilar region, which may be related to worsening pn eumonia. 2. Nasogastric tube noted in place with gaseous distention of the stomach. The most proximal side ho le likely overlies the GE junction, and the nasogastric tube should be mildly advanced. POS: OFF
[2020-02-24 08:30] LABS: Actual Bicarbonate (HCO3a) 14.8 mEq/L (22-28); Base Excess (BEa) -12.3 mEq/L (-2.0 to +3.0); CO2 Tension 37.9 mmHg (35.0-45.0); Calcium, Ionized (arterial) 1.27 mmol/L (1.12-1.30); Carboxyhemoglobin (COHb) 0.5 gm% (0.0-3.0); Hemoglobin (Hb) 14.5 g/dL (14.0-18.0); Potassium - ABG Lab 3.46 mmol/L (3.70-5.30)
[2020-02-24] MEDS: Dexamethasone 6 MG in Sodium Chloride 0.9% 50 ML IVPB SCH (08:48)
[2020-02-24] MEDS: Heparin 5,000 UNITS/ML VIAL SC SCH ×2 (08:48→20:00)
[2020-02-24] MEDS: Famotidine/PF 20 mg/2ml Vial SLOW IVP SCH (08:49)
[2020-02-24] MEDS: Insulin Glargine 15 UNITS in Pre-Filled Syringe 1 EACH SC SCH ×2 (08:58→21:54)
[2020-02-24] MEDS: Sodium Chloride 0.9% 1,000 ML IV SCH (09:02)
--- NOTE | 2020-02-24 09:05 | PRG ---
DATE OF SERVICE: 02/24/2020 SUBJECTIVE: Alok Ernandez is a 74-year-old gentleman, who is encephalopathic, on the vent. Unfortunately, he contacted the [facility]. He has no family members. There is no contactable phone number. OBJECTIVE: GENERAL: He remains sedated since he was very encephalopathic. He is breathing 50 times a minute yesterday, on the sedation right now. His respiratory rate is 18. His pulse is 75, blood pressure is 122/65, saturations are 90%, temperature 99. CHEST: Bilateral rhonchi, crackles. CARDIAC: Normal S1, S2. No gallops. ABDOMEN: No masses. LABORATORY DATA: His BUN is 69, creatinine is 2.96. His white count is 19,000, H and H of 14 and 43, platelet count 221, glucose markedly elevated. IMPRESSION: 1. Sepsis syndrome, urine Proteus. 2. Aspiration pneumonia, krause positive status, weak. 3. Renal failure. 4. Cardiomyopathy. The patient is clearly not weanable. I have restarted normal saline , increasing dose of Lantus, decreasing his steroids, antibiotics to be adjusted for his renal failure. Long-term prognosis is grave. He has not tolerated feedings, therefore in the process of trying to get him Reglan. One-half hour of critical care time. Job ID: [id number]
[2020-02-24] MEDS: cefTRIAXone\\ROCEPHIN 1 GM in Sodium Chloride 0.9% 100 ML IVPB SCH (09:07)
--- NOTE | 2020-02-24 11:19 | PDOC.PALCO ---
Palliative Care Consult - Consult Details Requesting Physician: Hospitalist Reason for Consult: goals of care - Pertinent HPI 74 year old make with significant medical history. He was a resident at a [facility] facility. Poor functional status with assist for ADL's. Was sent from group home to [facility] for further evaluation of shortness of breath, poor oxygen saturation. In the emergency room was placed on a non-rebreather, experienced Hypotension, and chest x-ray showed right lower lobe opacities. Covid positive. Subsequent intubation, mechanical ventilation, admission to CCU. No MPOA, no surrogate decision maker. - Pertinent PMH Atrial Fibrillation, Diabetes, HTN, HDL, Dysphagia, Cellulitis - Social History Smoking Status: Unknown if ever smoked Living Situation: group home resident - Medications MAR Reviewed: Yes - Allergies Allergies/Adverse Reactions: Allergies Allergy/AdvReac Type Severity Reaction Status Date / Time No Known Allergies Allergy Unverified 02/20/20 20:04 - Subjective Intubated, mechanical ventilation, sedated. Not weanable from vent as per pulmonology note, continues on ABX therapy, increase in steroids. - ROS Non Response: due to endotracheal tube, due to mental status - Objective Vital Signs: Vital Signs - Most Recent Temp Pulse Resp BP Pulse Ox 98.5 F 60 21 H 140/67 95 02/23/20 16:00 02/24/20 11:01 02/24/20 10:00 02/24/20 11:01 02/24/20 07:15 Palliative Performance Scale: 20 - Physical Exam Constitutional: encephalitic, ill appearing HEENT: moist MMs, sclera anicteric Deviation from normal: bilaterally adventicious Cardiovascular: RRR Gastrointestinal: soft, non-tender, positive bowel sounds, incontinent Genitourinary: dobbs catheter Musculoskeletal: no cyanosis, edema present, diffuse muscle atrophy Skin: cap refill <2 seconds, fragile Deviation from normal: Dry Deviation from normal: encephalopatic - Problem List (1) Palliative care encounter Code(s): Z51.5 - ENCOUNTER FOR PALLIATIVE CARE Current Visit: Yes Status: Acute (2) Acute renal failure Current Visit: Yes Status: Acute (3) Acute respiratory failure with hypoxemia Code(s): J96.01 - ACUTE RESPIRATORY FAILURE WITH HYPOXIA Current Visit: Yes Status: Acute (4) Pneumonia due to COVID-19 virus Code(s): U07.1 - COVID-19; J12.89 - OTHER VIRAL PNEUMONIA Current Visit: Yes Status: Acute (5) Septic shock Code(s): A41.9 - SEPSIS, UNSPECIFIED ORGANISM; R65.21 - SEVERE SEPSIS WITH SEPTIC SHOCK Current Visit: Yes Status: Acute (6) Diabetes mellitus type 2 in nonobese Code(s): E11.9 - TYPE 2 DIABETES MELLITUS WITHOUT COMPLICATIONS Current Visit: Yes Status: Chronic (7) Hypertension Code(s): I10 - ESSENTIAL (PRIMARY) HYPERTENSION Current Visit: Yes Status: Chronic - Plan/Recommendations Plan: Guarded prognosis. Previous resident at [facility], transferred to [facility] to Covid unit as per nursing. Unable to locate next of kin, surrogate decision maker. Palliative Care will initiate process for Court to designate surrogate decision maker. Currently if needed two physicians can establish DNAR. Communicated with Dr Quintana and Dr Mahoney. Bruna Yang and [facility]санд[facility] to assist with process of contacting courts for surrogate decision maker. Please refer to Palliative Care notes to note progress in process. [50] minutes spent on this encounter with >50% of the time in counseling and coordination of care. Thank you for this very appropriate consult.
[2020-02-24 11:36] LABS: pH, Arterial 7.21 (7.35-7.45)
[2020-02-24 11:37] LABS: O2 Tension (PaO2), arterial 56.5 mmHg (> 70.0); Puncture Site RR
[2020-02-24 11:38] LABS: ALV-art Gradient 181.325 mmHg (0-20)
[2020-02-24] MEDS: Metoclopramide HCl 10 MG/2 ML VIAL IVP SCH ×2 (13:24→21:55)
--- NOTE | 2020-02-24 14:45 | PDOC.HOSPP ---
- Subjective Encounter Date: 02/24/20 Encounter Time: 14:43 Subjective: Mr. Ernandez was seen today in follow-up of pneumonia and COVID positive status. He is intubated, and has not had any significant change overnight. - Objective Vital Signs & Weight: Vital Signs (12 hours) Temp Pulse Resp BP Pulse Ox 02/24/20 14:00 22 H 02/24/20 12:00 99.1 F 19 02/24/20 11:01 60 140/67 02/24/20 10:00 21 H 02/24/20 08:06 77 122/67 02/24/20 08:00 18 02/24/20 07:15 95 02/24/20 06:00 18 02/24/20 04:00 17 Weight Admit Weight 227 lb Weight 227 lb 1.218 oz Most Recent Monitor Data Heart Rate from ECG 67 NIBP 112/56 NIBP BP-Mean 74 Respiration from ECG 21 SpO2 93 I&O: 02/23/20 02/24/20 02/25/20 06:59 06:59 06:59 Intake Total 4007.4 3822 210 Output Total 985 860 415 Balance 3022.4 2962 -205 Result Diagrams: 02/24/20 04:00 02/24/20 04:00 Additional Labs: Accuchecks 02/24/20 02/23/20 03:45 15:49 POC Glucose 339 H 305 H Hospitalist ROS - Medication Medications: Active Medications Generic Name Dose Route Start Last Admin Trade Name Freq PRN Reason Stop Dose Admin Acetaminophen 650 mg 02/20/20 19:42 02/21/20 06:53 Acetaminophen 650 Mg Suppository MS 650 mg Q4H PRN Administration Headache/Fever/Mild Pain (1-3) Famotidine 20 mg 02/21/20 09:00 02/24/20 08:49 Famotidine/Pf 20 Mg/2ml Vial SLOW IVP 20 mg DAILY BEBO Administration Heparin Sodium (Porcine) 5,000 units 02/21/20 21:00 02/24/20 08:48 Heparin 5,000 Units/Ml Vial SC 5,000 units BID BEBO Administration Hydrocortisone Sodium Succinate 50 mg 02/24/20 09:00 02/24/20 09:07 Hydrocortisone Sod Succ/Pf 100 Mg/2 Ml Vial IVP 03/02/20 09:01 50 mg Q6H BEBO Administration Dexamethasone 6 mg/ Sodium 50.6 mls @ 100 mls/hr 02/21/20 09:00 02/24/20 08:48 Chloride IVPB 50.6 mls DAILY BEBO Administration Norepinephrine Bitartrate 16 266 mls @ 0 mls/hr 02/21/20 04:45 02/23/20 05:35 mg/ Dextrose/Water IVPB 266 mls INF BEBO Administration Protocol Titrate Vasopressin 20 unit/ 51 mls @ 0 mls/hr 02/21/20 05:15 02/21/20 05:06 Miscellaneous Medication 1 IV 51 mls each/ Sodium Chloride INF BEBO Administration Protocol As Directed Epinephrine 4 mg/ Dextrose/ 254 mls @ 0 mls/hr 02/21/20 05:30 02/21/20 05:30 Water IV 254 mls INF BEBO Administration Protocol Titrate Fentanyl Citrate 2,000 mcg/ 100 mls @ 0 mls/hr 02/21/20 20:45 02/24/20 05:52 Sodium Chloride IV 03/22/20 20:45 100 mls INF BEBO Administration Protocol Per Protocol Insulin Glargine 15 units/ 0.15 mls @ 0 mls/hr 02/24/20 09:00 02/24/20 08:58 Miscellaneous Medication SC 0.15 mls BID BEBO Administration Sodium Chloride 1,000 mls @ 50 mls/hr 02/24/20 08:30 02/24/20 09:02 Normal Saline 0.9% IV 1,000 mls .Q20H BEBO Administration Ceftriaxone Sodium 1 gm/ 100 mls @ 200 mls/hr 02/24/20 09:00 02/24/20 09:07 Sodium Chloride IVPB 100 mls Q24HR BEBO Administration Insulin Human Regular 0 units 02/20/20 19:52 02/24/20 09:47 Insulin Regular 300 Units/3 Ml Vial SC 6 unit .MILD SLIDING SCALE PRN Administration Mild Correctional Scale Metoclopramide HCl 5 mg 02/24/20 14:00 02/24/20 13:24 Metoclopramide Hcl 10 Mg/2 Ml Vial IVP 5 mg Q8HR BEBO Administration - Exam Eye: PERRL, anicteric sclera Heart: RRR, no murmur, no gallops, no rubs, normal peripheral pulses Respiratory: no rales (+ rales at both bases, + rhonchi) Gastrointestinal: soft, non-tender, non-distended, normal bowel sounds, no palpable masses, no hepatomegaly Extremities: no cyanosis, 1+ LE edema Hosp A/P (1) Acute respiratory failure with hypoxemia Code(s): J96.01 - ACUTE RESPIRATORY FAILURE WITH HYPOXIA Status: Acute (2) Pneumonia due to COVID-19 virus Code(s): U07.1 - COVID-19; J12.89 - OTHER VIRAL PNEUMONIA Status: Acute (3) Septic shock Code(s): A41.9 - SEPSIS, UNSPECIFIED ORGANISM; R65.21 - SEVERE SEPSIS WITH SEPTIC SHOCK Status: Acute (4) Acute renal failure Status: Acute (5) Atrial fibrillation Code(s): I48.91 - UNSPECIFIED ATRIAL FIBRILLATION Status: Chronic (6) Diabetes mellitus type 2 in nonobese Code(s): E11.9 - TYPE 2 DIABETES MELLITUS WITHOUT COMPLICATIONS Status: Chronic (7) Hypertension Code(s): I10 - ESSENTIAL (PRIMARY) HYPERTENSION Status: Chronic - Plan * Acute respiratory failure due to Pneumonia. He is also COVID positive he is requiring mechanical ventilation * His overall prognosis is grave * Septic shock with multi-organ failure- final blood culture results noted- this appears to represent a contaminated sample- Will continue broad spectrum antibiotics, and Vancomycin * Urine culture is growing Proteus- sensitive to Cephalosporins * Acute kidney injury-slight improvement * DM- blood glucose has been elevated- will add Lantus insulin and continue the SSI * Still no Surrogate decision maker, or family available. The palliative Care team is involved, and paperwork will be completed and filed with the court to obtain surrogate decision -maker status. * I have discussed the patient's medical case with the Diesel Engine As[employer]er, and his prognosis is extremely poor, and he has almost no chance of surviving this hospitalization. Two physicians are in agreement and have signed the order. Will change his code status to DNAR.
[2020-02-25] MEDS: Hydrocortisone Sod Succ/PF 100 mg/2 ml Vial IVP SCH ×2 (02:07→09:08)
[2020-02-25] MEDS: Sodium Chloride 0.9% 1,000 ML IV SCH ×2 (02:07→22:12)
[2020-02-25] MEDS: Insulin Regular 300 UNITS/3 ML VIAL SC PRN ×3 (05:05→21:52)
[2020-02-25] MEDS: Metoclopramide HCl 10 MG/2 ML VIAL IVP SCH ×3 (05:30→21:52)
[2020-02-25 05:35] LABS: Anion Gap 14 mmol/L (10-20); BUN (Urea Nitrogen) 80 mg/dL (8.4-25.7); Calc. Creatinine Clearance 34 mL/min (70-130); Calcium 8.4 mg/dL (7.8-10.44); Carbon Dioxide 15 mmol/L (23-31); Chloride 118 mmol/L (98-107); Estimated GFR-MDRD 22; Glucose 322 mg/dL (83-110); Potassium 3.6 mmol/L (3.5-5.1); Sodium 143 mmol/L (136-145)
[2020-02-25 05:54] LABS: Band 43 % (5-11); Hemoglobin 13.8 g/dL (14.0-18.0); Lymphocytes 1 % (21-51); MDiff Complete? YES; Mean Corpuscular HGB CONC 33.1 g/dL (32.0-36.0); Mean Corpuscular Hemoglobin 31.1 pg (27.0-31.0); Mean Corpuscular Volume 94.1 fL (78.0-98.0); Mean Platelet Volume 9.5 fL (7.4-10.4); Monocytes 7 % (0-10); Neutrophil 49 % (42-75); Platelet Count 176 thou/uL (130-400); Platelet Morphology Comment Appears Adequate; RBC Distribution Width 17.3 % (11.5-14.5); RBC Morphology Normal; Red Blood Cell (RBC) Count 4.43 mill/uL (4.70-6.10)
[2020-02-25 07:32] LABS: Calcium, Ionized (arterial) 1.24 mmol/L (1.12-1.30); Carboxyhemoglobin (COHb) 0.7 gm% (0.0-3.0); Hemoglobin (Hb) 14.2 g/dL (14.0-18.0); O2 Tension (PaO2), arterial 60.9 mmHg (> 70.0); Potassium - ABG Lab 3.46 mmol/L (3.70-5.30); pH, Arterial 7.33 (7.35-7.45)
[2020-02-25 07:37] LABS: CO2 Tension 24.9 mmHg (35.0-45.0); Puncture Site RRA
[2020-02-25 07:38] LABS: ALV-art Gradient 193.175 mmHg (0-20)
[2020-02-25] MEDS: Heparin 5,000 UNITS/ML VIAL SC SCH ×2 (09:07→20:54)
[2020-02-25] MEDS: Famotidine/PF 20 mg/2ml Vial SLOW IVP SCH (09:08)
[2020-02-25] MEDS: Dexamethasone 6 MG in Sodium Chloride 0.9% 50 ML IVPB SCH (09:24)
[2020-02-25] MEDS: Insulin Glargine 15 UNITS in Pre-Filled Syringe 1 EACH SC SCH ×2 (09:24→20:53)
[2020-02-25] MEDS: Lorazepam 2 MG/ML VIAL SLOW IVP PRN ×2 (09:24→20:54)
[2020-02-25] MEDS: cefTRIAXone\\ROCEPHIN 1 GM in Sodium Chloride 0.9% 100 ML IVPB SCH (09:24)
--- NOTE | 2020-02-25 09:39 | PRG ---
DATE OF SERVICE: 02/25/2020 SUBJECTIVE: Alok Ernandez is a 74-year-old gentleman, remains in the ICU, encephalopathic. OBJECTIVE: VITAL SIGNS: Temperature , blood pressure 130/64, pulse 89, respirations 18. CHEST: Bilateral rhonchi, crackles. CARDIAC: Normal S1 and S2. No gallops. ABDOMEN: No masses. LABORATORY DATA: White count 14,000, hemoglobin and hematocrit 13 and 41, platelet count 176. PO2 of 60, [id number] ph 7.37 PEEP of 5. Creatinine 2.7, BUN 80. IMAGING STUDIES: X-ray shows a right-sided pneumonia. IMPRESSION: 1. Multiorgan failure, metabolic encephalopathy. 2. Pneumonia, krause positive. 3. Renal failure, congestive heart failure. PLAN: 1. He has remained DNR. Two physicians have signed, I agreed. 2. At this stage, not much to do, comfort care. 3. Continue basically supportive care. Steroids, empiric antibiotics. One-half hour of critical time. Job ID: [id number] MTDD
[2020-02-25] MEDS ORDERED: Amiodarone 150 MG, Admixture Fee 1 EACH in Dextrose 5% in Water 100 ML IVPB SCH (12:30)
[2020-02-25] MEDS: Amiodarone 450 MG, Admixture Fee 1 EACH in Dextrose 5% in Water 250 ML IVPB SCH ×2 (12:37→21:52)
[2020-02-25] MEDS: fentaNYL Citrate/PF 2,000 MCG in Sodium Chloride 0.9% 60 ML IV SCH (12:42)
--- NOTE | 2020-02-25 14:01 | PDOC.HOSPP ---
- Subjective Encounter Date: 02/25/20 Encounter Time: 13:59 Subjective: Mr. Ernandez was seen today in follow-up of respiratory failure due to pneumonia. He is also COVID positive. He remains intubated - Objective Vital Signs & Weight: Vital Signs (12 hours) Temp Pulse Resp BP Pulse Ox 02/25/20 10:38 146 H 02/25/20 09:00 99.1 F 02/25/20 08:00 31 H 02/25/20 07:18 78 02/25/20 06:00 27 H 02/25/20 04:00 26 H 02/25/20 02:34 97 02/25/20 02:32 65 125/72 02/25/20 02:00 25 H Weight Admit Weight 227 lb Weight 227 lb 1.218 oz Most Recent Monitor Data Heart Rate from ECG 89 NIBP 132/64 NIBP BP-Mean 86 Respiration from ECG 31 SpO2 95 I&O: 02/24/20 02/25/20 02/26/20 06:59 06:59 06:59 Intake Total 3822 2981.0 Output Total 860 1370 210 Balance 2962 1611.0 -210 Result Diagrams: 02/25/20 04:40 02/25/20 04:40 Hospitalist ROS - Medication Medications: Active Medications Generic Name Dose Route Start Last Admin Trade Name Gilq PRN Reason Stop Dose Admin Acetaminophen 650 mg 02/20/20 19:42 02/21/20 06:53 Acetaminophen 650 Mg Suppository [place] 650 mg Q4H PRN Administration Headache/Fever/Mild Pain (1-3) Famotidine 20 mg 02/21/20 09:00 02/25/20 09:08 Famotidine/Pf 20 Mg/2ml Vial SLOW IVP 20 mg DAILY BEBO Administration Heparin Sodium (Porcine) 5,000 units 02/21/20 21:00 02/25/20 09:07 Heparin 5,000 Units/Ml Vial SC 5,000 units BID BEBO Administration Dexamethasone 6 mg/ Sodium 50.6 mls @ 100 mls/hr 02/21/20 09:00 02/25/20 09:24 Chloride IVPB 50.6 mls DAILY BEBO Administration Norepinephrine Bitartrate 16 266 mls @ 0 mls/hr 02/21/20 04:45 02/24/20 17:33 mg/ Dextrose/Water IVPB 266 mls INF BEBO Administration Protocol Titrate Vasopressin 20 unit/ 51 mls @ 0 mls/hr 02/21/20 05:15 02/21/20 05:06 Miscellaneous Medication 1 IV 51 mls each/ Sodium Chloride INF BEBO Administration Protocol As Directed Epinephrine 4 mg/ Dextrose/ 254 mls @ 0 mls/hr 02/21/20 05:30 02/21/20 05:30 Water IV 254 mls INF BEBO Administration Protocol Titrate Fentanyl Citrate 2,000 mcg/ 100 mls @ 0 mls/hr 02/21/20 20:45 02/25/20 12:42 Sodium Chloride IV 03/22/20 20:45 100 mls INF BEBO Administration Protocol Per Protocol Insulin Glargine 15 units/ 0.15 mls @ 0 mls/hr 02/24/20 09:00 02/25/20 09:24 Miscellaneous Medication SC 0.15 mls BID BEBO Administration Sodium Chloride 1,000 mls @ 50 mls/hr 02/24/20 08:30 02/25/20 02:07 Normal Saline 0.9% IV 1,000 mls .Q20H BEBO Administration Ceftriaxone Sodium 1 gm/ 100 mls @ 200 mls/hr 02/24/20 09:00 02/25/20 09:24 Sodium Chloride IVPB 100 mls Q24HR BEBO Administration Amiodarone HCl 150 mg/ 103 mls @ 618 mls/hr 02/25/20 12:30 02/25/20 12:36 Miscellaneous Medication 1 IVPB 02/25/20 14:00 103 mls each/ Dextrose/Water NOW BEBO Administration Protocol Amiodarone HCl 450 mg/ 259 mls @ 0 mls/hr 02/25/20 12:30 02/25/20 12:37 Miscellaneous Medication 1 IVPB 259 mls each/ Dextrose/Water INF BEBO Administration Protocol As Directed Insulin Human Regular 0 units 02/20/20 19:52 02/25/20 05:05 Insulin Regular 300 Units/3 Ml Vial SC 4 unit .MILD SLIDING SCALE PRN Administration Mild Correctional Scale Lorazepam 2 mg 02/21/20 20:45 02/25/20 09:24 Lorazepam 2 Mg/Ml Vial SLOW IVP 03/22/20 20:45 2 mg Q1H PRN Administration Breakthrough agitation Metoclopramide HCl 5 mg 02/24/20 14:00 02/25/20 05:30 Metoclopramide Hcl 10 Mg/2 Ml Vial IVP 5 mg Q8HR BEBO Administration Propofol 1,000 mg 02/21/20 20:45 02/25/20 09:35 Propofol 1,000 Mg/100 Ml Vial IV 03/22/20 20:45 1,000 mg INF PRN Administration TO ACHIEVE GOAL RASS Protocol - Exam Eye: PERRL, anicteric sclera Heart: RRR, no murmur, no gallops, no rubs, normal peripheral pulses Respiratory: rales (at the bases) Gastrointestinal: soft, non-tender, non-distended, normal bowel sounds, no palpable masses, no hepatomegaly Extremities: no cyanosis, 1+ LE edema Hosp A/P (1) Acute respiratory failure with hypoxemia Code(s): J96.01 - ACUTE RESPIRATORY FAILURE WITH HYPOXIA Status: Acute (2) Pneumonia due to COVID-19 virus Code(s): U07.1 - COVID-19; J12.89 - OTHER VIRAL PNEUMONIA Status: Acute (3) Septic shock Code(s): A41.9 - SEPSIS, UNSPECIFIED ORGANISM; R65.21 - SEVERE SEPSIS WITH SEPTIC SHOCK Status: Acute (4) Acute renal failure Status: Acute (5) Atrial fibrillation Code(s): I48.91 - UNSPECIFIED ATRIAL FIBRILLATION Status: Chronic (6) Diabetes mellitus type 2 in nonobese Code(s): E11.9 - TYPE 2 DIABETES MELLITUS WITHOUT COMPLICATIONS Status: Chronic (7) Hypertension Code(s): I10 - ESSENTIAL (PRIMARY) HYPERTENSION Status: Chronic - Plan * Acute respiratory failure due to Pneumonia. He is also COVID positive he is requiring mechanical ventilation> the pneumonia is felt to be community aquired ( albeit from the custodial) and not due to COVID * His overall prognosis is grave * Septic shock with multi-organ failure- final blood culture results noted- this appears to represent a contaminated sample- Will continue broad spectrum antibiotics, and Vancomycin * Urine culture is growing Proteus- sensitive to Cephalosporins * He developed AFIB with RVR- will start Amiodarone drip * Acute kidney injury- improved initially, but his creatinine has plateaued. * DM- blood glucose has been elevated- continue to titrate insulin * Still no Surrogate decision maker, or family available. The palliative Care team is involved, and paperwork will be completed and filed with the court to obtain surrogate decision -maker status. * He is now DNAR, and prognosis is grave
[2020-02-26] MEDS: Insulin Regular 300 UNITS/3 ML VIAL SC PRN ×2 (04:34→09:55)
[2020-02-26 05:12] LABS: Anion Gap 15 mmol/L (10-20); BUN (Urea Nitrogen) 96 mg/dL (8.4-25.7); Calc. Creatinine Clearance 35 mL/min (70-130); Calcium 8.5 mg/dL (7.8-10.44); Carbon Dioxide 15 mmol/L (23-31); Chloride 118 mmol/L (98-107); Estimated GFR-MDRD 23; Glucose 478 mg/dL (83-110); Potassium 3.6 mmol/L (3.5-5.1); Sodium 144 mmol/L (136-145)
[2020-02-26] MEDS: Metoclopramide HCl 10 MG/2 ML VIAL IVP SCH ×3 (05:21→21:27)
[2020-02-26 05:41] LABS: Band 11 % (5-11); Hemoglobin 14.7 g/dL (14.0-18.0); Lymphocytes 2 % (21-51); MDiff Complete? YES; Mean Corpuscular HGB CONC 32.8 g/dL (32.0-36.0); Mean Corpuscular Hemoglobin 30.5 pg (27.0-31.0); Mean Corpuscular Volume 92.8 fL (78.0-98.0); Mean Platelet Volume 10.1 fL (7.4-10.4); Monocytes 11 % (0-10); Neutrophil 76 % (42-75); Platelet Count 229 thou/uL (130-400); Platelet Morphology Comment Appears Adequate; RBC Distribution Width 17.6 % (11.5-14.5); RBC Morphology Normal; Red Blood Cell (RBC) Count 4.81 mill/uL (4.70-6.10); White Blood Cell (WBC) Count 13.4 thou/uL (4.8-10.8)
[2020-02-26] MEDS: fentaNYL Citrate/PF 2,000 MCG in Sodium Chloride 0.9% 60 ML IV SCH (06:59)
[2020-02-26 07:42] LABS: Actual Bicarbonate (HCO3a) 12.8 mEq/L (22-28); Base Excess (BEa) -10.5 mEq/L (-2.0 to +3.0); Calcium, Ionized (arterial) 1.31 mmol/L (1.12-1.30); Carboxyhemoglobin (COHb) 0.4 gm% (0.0-3.0); Hemoglobin (Hb) 14.6 g/dL (14.0-18.0); O2 Tension (PaO2), arterial 154.4 mmHg (> 70.0); Potassium - ABG Lab 3.98 mmol/L (3.70-5.30); pH, Arterial 7.36 (7.35-7.45)
[2020-02-26 07:56] LABS: CO2 Tension 23.4 mmHg (35.0-45.0); Puncture Site RRA
[2020-02-26] MEDS: Heparin 5,000 UNITS/ML VIAL SC SCH ×2 (08:42→21:15)
[2020-02-26] MEDS: Famotidine/PF 20 mg/2ml Vial SLOW IVP SCH (08:42)
[2020-02-26] MEDS: Dexamethasone 6 MG in Sodium Chloride 0.9% 50 ML IVPB SCH (08:47)
[2020-02-26] MEDS: cefTRIAXone\\ROCEPHIN 1 GM in Sodium Chloride 0.9% 100 ML IVPB SCH (08:47)
[2020-02-26] MEDS: Insulin Glargine 15 UNITS in Pre-Filled Syringe 1 EACH SC SCH ×2 (08:48→21:15)
[2020-02-26] MEDS: Amiodarone 450 MG, Admixture Fee 1 EACH in Dextrose 5% in Water 250 ML IVPB SCH (10:40)
--- NOTE | 2020-02-26 13:34 | PDOC.HOSPP ---
- Subjective Encounter Date: 02/26/20 Encounter Time: 11:40 Subjective: No change clinically in his situation. worse prognosis. On flutter and fib under rate controlled pulse in the 70s in the monitor.. He is still on amiodarone drip. Discussed with RN. - Objective Vital Signs & Weight: Vital Signs (12 hours) Temp Pulse Resp BP Pulse Ox 02/26/20 12:00 97.9 F 20 02/26/20 10:16 95 134/75 02/26/20 10:00 19 02/26/20 08:00 20 02/26/20 07:36 89 125/68 02/26/20 07:09 97 02/26/20 06:00 22 H 02/26/20 04:00 22 H 02/26/20 02:58 95 142/77 H 02/26/20 02:00 24 H Weight Admit Weight 227 lb Weight 239 lb 3.225 oz Most Recent Monitor Data Heart Rate from ECG 97 NIBP 88/66 NIBP BP-Mean 73 Respiration from ECG 20 SpO2 99 I&O: 02/25/20 02/26/20 02/27/20 06:59 06:59 05:59 Intake Total 2981.0 3267.3 90 Output Total 1370 1885 510 Balance 1611.0 1382.3 -420 Result Diagrams: 02/26/20 04:00 02/26/20 04:00 Additional Labs: Accuchecks 02/26/20 02/26/20 02/25/20 09:44 04:08 21:43 POC Glucose 427 H 430 H 392 H 02/25/20 02/25/20 02/25/20 16:16 10:40 04:42 POC Glucose 412 H 340 H 293 H 02/24/20 02/24/20 02/24/20 22:17 15:42 09:30 POC Glucose 291 H 326 H 382 H 02/23/20 20:27 POC Glucose 325 H Hospitalist ROS - Medication Medications: Active Medications Generic Name Dose Route Start Last Admin Trade Name Freq PRN Reason Stop Dose Admin Acetaminophen 650 mg 02/20/20 19:42 02/21/20 06:53 Acetaminophen 650 Mg Suppository [place] 650 mg Q4H PRN Administration Headache/Fever/Mild Pain (1-3) Famotidine 20 mg 02/21/20 09:00 02/26/20 08:42 Famotidine/Pf 20 Mg/2ml Vial SLOW IVP 20 mg DAILY BEBO Administration Heparin Sodium (Porcine) 5,000 units 02/21/20 21:00 02/26/20 08:42 Heparin 5,000 Units/Ml Vial SC 5,000 units BID BEBO Administration Dexamethasone 6 mg/ Sodium 50.6 mls @ 100 mls/hr 02/21/20 09:00 02/26/20 08:47 Chloride IVPB 50.6 mls DAILY BEBO Administration Norepinephrine Bitartrate 16 266 mls @ 0 mls/hr 02/21/20 04:45 02/24/20 17:33 mg/ Dextrose/Water IVPB 266 mls INF BEBO Administration Protocol Titrate Vasopressin 20 unit/ 51 mls @ 0 mls/hr 02/21/20 05:15 02/21/20 05:06 Miscellaneous Medication 1 IV 51 mls each/ Sodium Chloride INF BEBO Administration Protocol As Directed Epinephrine 4 mg/ Dextrose/ 254 mls @ 0 mls/hr 02/21/20 05:30 02/21/20 05:30 Water IV 254 mls INF BEBO Administration Protocol Titrate Fentanyl Citrate 2,000 mcg/ 100 mls @ 0 mls/hr 02/21/20 20:45 02/26/20 06:59 Sodium Chloride IV 03/22/20 20:45 100 mls INF BEBO Administration Protocol Per Protocol Insulin Glargine 15 units/ 0.15 mls @ 0 mls/hr 02/24/20 09:00 02/26/20 08:48 Miscellaneous Medication SC 0.15 mls BID BEBO Administration Sodium Chloride 1,000 mls @ 50 mls/hr 02/24/20 08:30 02/25/20 22:12 Normal Saline 0.9% IV 1,000 mls .Q20H BEBO Administration Ceftriaxone Sodium 1 gm/ 100 mls @ 200 mls/hr 02/24/20 09:00 02/26/20 08:47 Sodium Chloride IVPB 100 mls Q24HR BEBO Administration Amiodarone HCl 450 mg/ 259 mls @ 0 mls/hr 02/25/20 12:30 02/26/20 10:40 Miscellaneous Medication 1 IVPB 259 mls each/ Dextrose/Water INF BEBO Administration Protocol As Directed Insulin Human Regular 0 units 02/20/20 19:52 02/26/20 09:55 Insulin Regular 300 Units/3 Ml Vial SC 6 unit .MILD SLIDING SCALE PRN Administration Mild Correctional Scale Lorazepam 2 mg 02/21/20 20:45 02/25/20 20:54 Lorazepam 2 Mg/Ml Vial SLOW IVP 03/22/20 20:45 2 mg Q1H PRN Administration Breakthrough agitation Metoclopramide HCl 5 mg 02/24/20 14:00 02/26/20 05:21 Metoclopramide Hcl 10 Mg/2 Ml Vial IVP 5 mg Q8HR BEBO Administration Propofol 1,000 mg 02/21/20 20:45 02/25/20 09:35 Propofol 1,000 Mg/100 Ml Vial IV 03/22/20 20:45 1,000 mg INF PRN Administration TO ACHIEVE GOAL RASS Protocol - Exam General Appearance: ill appearing Eye: PERRL ENT: normocephalic atraumatic Psychiatric: not oriented Hosp A/P - Plan (1) Acute respiratory failure with hypoxemia Code(s): J96.01 - ACUTE RESPIRATORY FAILURE WITH HYPOXIA Status: Acute (2) Pneumonia due to COVID-19 virus Code(s): U07.1 - COVID-19; J12.89 - OTHER VIRAL PNEUMONIA Status: Acute (3) Septic shock Code(s): A41.9 - SEPSIS, UNSPECIFIED ORGANISM; R65.21 - SEVERE SEPSIS WITH SEPTIC SHOCK Status: Acute (4) Acute renal failure Status: Acute (5) Atrial fibrillation Code(s): I48.91 - UNSPECIFIED ATRIAL FIBRILLATION Status: Chronic (6) Diabetes mellitus type 2 in nonobese Code(s): E11.9 - TYPE 2 DIABETES MELLITUS WITHOUT COMPLICATIONS Status: [facility] (7) Hypertension Code(s): I10 - ESSENTIAL (PRIMARY) HYPERTENSION Status: Chronic - Plan * Acute respiratory failure due to Pneumonia. He is also COVID positive he is requiring mechanical ventilation> the pneumonia is felt to be community acquired ( albeit from the [facility]) and not due to COVID * Septic shock with multi-organ failure- final blood culture results noted- this appears to represent a contaminated sample- Will continue broad spectrum antibiotics, and Vancomycin * Urine culture is growing Proteus- sensitive to Cephalosporins AFIB with RVR- - Amiodarone drip Acute kidney injury- improved initially, - creatinine has plateaued. * DM- blood glucose has been elevated- continue to titrate insulin * Still no Surrogate decision maker, or family available. * -The palliative Care team is involved, and paperwork will be completed and filed with the court to obtain surrogate decision -maker status. * * -We will reduce any blood draw from now on and lab monitoring. DNAR, prognosis is grave -
--- NOTE | 2020-02-26 14:56 | PRG ---
DATE OF SERVICE: 02/26/2020 SUBJECTIVE: There has been no significant interval change. He continues to receive significant ventilatory support including a rate of 8, tidal volume 500, PEEP of 5, FiO2 of 50%. He has been declared DNR status by 2 physician certification. PHYSICAL EXAMINATION: VITAL SIGNS: Blood pressure 122/73, heart rate 87. He is afebrile. Temperature 97.9, FiO2 is 40%, and saturation is 98. HEENT: Shows no adenopathy or JVD. LUNGS: Show bilateral coarse rales without wheezes. HEART: Regular rate and rhythm. ABDOMEN: Soft. There is no organomegaly. He has no cords or tenderness. EXTREMITIES: He has 1+ edema. LABORATORY DATA: White count 13,400, hemoglobin is 14.7 with hematocrit of 47.2, and platelet count of 229,000. Differential includes 76 segs and 11 bands. Blood gas includes pH 7.36, CO2 of 23, pO2 of 154, bicarbonate of 12, consistent with a severe metabolic acidosis. Electrolytes confirmed includes sodium 144, potassium 3.6, chloride 118, CO2 is 15, BUN 96, and creatinine 2.7. IMPRESSION: 1. Coronavirus disease pneumonia. 2. Acute on chronic renal insufficiency. 3. Diabetes. 4. Severe metabolic acidosis secondary to above. PLAN: We will continue current ventilator support. He is on empiric antibiotics. He has been declared DNR on the basis of 2 physician signature. Unfortunately, there is little we have had her offer at this time. Critical care 31 minutes. Job ID: [id number]
[2020-02-26] MEDS: Sodium Chloride 0.9% 1,000 ML IV SCH (18:23)
[2020-02-27] MEDS: fentaNYL Citrate/PF 2,000 MCG in Sodium Chloride 0.9% 60 ML IV SCH ×2 (02:30→22:37)
[2020-02-27] MEDS: Amiodarone 450 MG, Admixture Fee 1 EACH in Dextrose 5% in Water 250 ML IVPB SCH ×2 (02:30→17:08)
[2020-02-27 04:47] LABS: Anion Gap 14 mmol/L (10-20); BUN (Urea Nitrogen) 105 mg/dL (8.4-25.7); Calc. Creatinine Clearance 39 mL/min (70-130); Calcium 8.4 mg/dL (7.8-10.44); Carbon Dioxide 17 mmol/L (23-31); Chloride 121 mmol/L (98-107); Estimated GFR-MDRD 25; Glucose 360 mg/dL (83-110); Sodium 148 mmol/L (136-145)
[2020-02-27 04:51] LABS: Band 11 % (5-11); Hemoglobin 15.1 g/dL (14.0-18.0); Lymphocytes 2 % (21-51); MDiff Complete? YES; Mean Corpuscular HGB CONC 32.7 g/dL (32.0-36.0); Mean Corpuscular Hemoglobin 30.5 pg (27.0-31.0); Mean Corpuscular Volume 93.5 fL (78.0-98.0); Metamyelocyte 1 % (0-0); Monocytes 14 % (0-10); Neutrophil 72 % (42-75); Platelet Count 231 thou/uL (130-400); Platelet Morphology Comment Appears Adequate; RBC Distribution Width 17.7 % (11.5-14.5); RBC Morphology Normal; Red Blood Cell (RBC) Count 4.95 mill/uL (4.70-6.10); White Blood Cell (WBC) Count 21.5 thou/uL (4.8-10.8)
[2020-02-27] MEDS: Metoclopramide HCl 10 MG/2 ML VIAL IVP SCH ×3 (05:23→21:17)
[2020-02-27] MEDS: Insulin Regular 300 UNITS/3 ML VIAL SC PRN ×4 (05:24→21:27)
[2020-02-27 07:52] LABS: Actual Bicarbonate (HCO3a) 13.6 mEq/L (22-28); CO2 Tension 27.9 mmHg (35.0-45.0); Calcium, Ionized (arterial) 1.29 mmol/L (1.12-1.30); Carboxyhemoglobin (COHb) 0.4 gm% (0.0-3.0); Hemoglobin (Hb) 15.5 g/dL (14.0-18.0); O2 Tension (PaO2), arterial 102.4 mmHg (> 70.0); Potassium - ABG Lab 3.99 mmol/L (3.70-5.30); pH, Arterial 7.31 (7.35-7.45)
[2020-02-27 08:12] LABS: ALV-art Gradient 219.225 mmHg (0-20); Puncture Site RRA
[2020-02-27] MEDS: cefTRIAXone\\ROCEPHIN 1 GM in Sodium Chloride 0.9% 100 ML IVPB SCH (08:36)
[2020-02-27] MEDS: Insulin Glargine 15 UNITS in Pre-Filled Syringe 1 EACH SC SCH ×2 (08:36→20:49)
[2020-02-27] MEDS: Heparin 5,000 UNITS/ML VIAL SC SCH ×2 (08:36→20:49)
[2020-02-27] MEDS: Famotidine/PF 20 mg/2ml Vial SLOW IVP SCH (08:36)
[2020-02-27] MEDS: Dexamethasone 6 MG in Sodium Chloride 0.9% 50 ML IVPB SCH (08:37)
--- NOTE | 2020-02-27 11:01 | PRG ---
DATE OF SERVICE: 02/27/2020 SUBJECTIVE: Mr. Ernandez is essentially unchanged. He continues to require pressor support as well as rate control for rapid atrial fibrillation. There is no evidence of ventilator improvement. PHYSICAL EXAMINATION: VITAL SIGNS: Current blood pressure 102/62, heart rate 107, respiratory rate 20, and saturation 96%. Current ventilator settings include a rate of 8, tidal volume 500, and FiO2 of 50%. GENERAL: He is unresponsive to stimuli. NECK: He has no JVD. LUNGS: Show coarse rhonchi, but no wheezing. HEART: Irregular with atrial fib and rate of 107. ABDOMEN: Soft. Bowel sounds are normal. He has no palpable cords or tenderness. LABORATORY DATA: White count 21,500, hemoglobin is 11.1 with hematocrit of 46.3, and platelet count of 231,000. He had 72 segs and 11 bands. Blood gas includes pH 7.31, CO2 of 28, pO2 of 104, bicarbonate 13.6. Chemistries include sodium 148, potassium 4.4, chloride 121, CO2 is 17, gap is 14 consistent with a hyperchloremic metabolic acidosis, BUN is 105, creatinine 2.5, glucose ranging from 250 to 425. He does not have a chest x-ray today. IMPRESSION: 1. Pneumonia in the setting of coronavirus disease. 2. infection. 3. Progressive renal insufficiency. 4. Atrial fibrillation with rapid ventricular response. 5. Metabolic acidosis secondary to above. PLAN: We will continue supportive care. His prognosis is extremely guarded. The patient has been made DNR by 2 doctor signature. Critical care, 31 minutes. Job ID: [id number] [facility]
[2020-02-27] MEDS: Sodium Chloride 0.9% 1,000 ML IV SCH (13:53)
--- NOTE | 2020-02-27 14:38 | PDOC.HOSPP ---
- Subjective Encounter Date: 02/27/20 Encounter Time: 11:50 Subjective: Patient remains the same. He is not getting any better. His LFTs elevated his sodium is high. Will check periodically his labs. Is continued to decline. Discussed with RN - Objective Vital Signs & Weight: Vital Signs (12 hours) Temp Pulse Resp BP Pulse Ox 02/27/20 14:00 16 02/27/20 12:00 18 02/27/20 10:05 107 H 100/62 02/27/20 10:00 20 02/27/20 08:00 19 02/27/20 07:43 109 H 100/69 02/27/20 07:22 100 02/27/20 06:00 19 02/27/20 04:22 109 H 02/27/20 04:00 98.1 F 18 Weight Admit Weight 227 lb Weight 240 lb 4.862 oz Most Recent Monitor Data Heart Rate from ECG 109 NIBP 98/59 NIBP BP-Mean 72 Respiration from ECG 16 SpO2 99 I&O: 02/26/20 02/27/20 02/28/20 07:59 06:59 06:59 Intake Total 180 Output Total 485 Balance -305 Result Diagrams: 02/27/20 04:05 02/27/20 04:05 Additional Labs: Accuchecks 02/27/20 02/27/20 02/26/20 09:30 04:15 21:36 POC Glucose 330 H 286 H 270 H 02/26/20 16:00 POC Glucose 322 H Hospitalist ROS - Medication Medications: Active Medications Generic Name Dose Route Start Last Admin Trade Name Freq PRN Reason Stop Dose Admin Acetaminophen 650 mg 02/20/20 19:42 02/21/20 06:53 Acetaminophen 650 Mg Suppository [place] 650 mg Q4H PRN Administration Headache/Fever/Mild Pain (1-3) Famotidine 20 mg 02/21/20 09:00 02/27/20 08:36 Famotidine/Pf 20 Mg/2ml Vial SLOW IVP 20 mg DAILY BEBO Administration Heparin Sodium (Porcine) 5,000 units 02/21/20 21:00 02/27/20 08:36 Heparin 5,000 Units/Ml Vial SC 5,000 units BID BEBO Administration Dexamethasone 6 mg/ Sodium 50.6 mls @ 100 mls/hr 02/21/20 09:00 02/27/20 08:37 Chloride IVPB 50.6 mls DAILY BEBO Administration Norepinephrine Bitartrate 16 266 mls @ 0 mls/hr 02/21/20 04:45 02/24/20 17:33 mg/ Dextrose/Water IVPB 266 mls INF BEBO Administration Protocol Titrate Vasopressin 20 unit/ 51 mls @ 0 mls/hr 02/21/20 05:15 02/21/20 05:06 Miscellaneous Medication 1 IV 51 mls each/ Sodium Chloride INF BEBO Administration Protocol As Directed Epinephrine 4 mg/ Dextrose/ 254 mls @ 0 mls/hr 02/21/20 05:30 02/21/20 05:30 Water IV 254 mls INF BEBO Administration Protocol Titrate Fentanyl Citrate 2,000 mcg/ 100 mls @ 0 mls/hr 02/21/20 20:45 02/27/20 02:30 Sodium Chloride IV 03/22/20 20:45 100 mls INF BEBO Administration Protocol Per Protocol Insulin Glargine 15 units/ 0.15 mls @ 0 mls/hr 02/24/20 09:00 02/27/20 08:36 Miscellaneous Medication SC 0.15 mls BID BEBO Administration Sodium Chloride 1,000 mls @ 50 mls/hr 02/24/20 08:30 02/27/20 13:53 Normal Saline 0.9% IV 1,000 mls .Q20H BEBO Administration Ceftriaxone Sodium 1 gm/ 100 mls @ 200 mls/hr 02/24/20 09:00 02/27/20 08:36 Sodium Chloride IVPB 100 mls Q24HR BEBO Administration Amiodarone HCl 450 mg/ 259 mls @ 0 mls/hr 02/25/20 12:30 02/27/20 02:30 Miscellaneous Medication 1 IVPB 259 mls each/ Dextrose/Water INF BEBO Administration Protocol As Directed Insulin Human Regular 0 units 02/20/20 19:52 02/27/20 10:02 Insulin Regular 300 Units/3 Ml Vial SC 5 unit .MILD SLIDING SCALE PRN Administration Mild Correctional Scale Lorazepam 2 mg 02/21/20 20:45 02/25/20 20:54 Lorazepam 2 Mg/Ml Vial SLOW IVP 03/22/20 20:45 2 mg Q1H PRN Administration Breakthrough agitation Metoclopramide HCl 5 mg 02/24/20 14:00 02/27/20 13:29 Metoclopramide Hcl 10 Mg/2 Ml Vial IVP 5 mg Q8HR BEBO Administration Propofol 1,000 mg 02/21/20 20:45 02/25/20 09:35 Propofol 1,000 Mg/100 Ml Vial IV 03/22/20 20:45 1,000 mg INF PRN Administration TO ACHIEVE GOAL RASS Protocol - Exam General Appearance: ill appearing Eye: PERRL ENT: normocephalic atraumatic Neck: supple Psychiatric: not oriented Hosp A/P - Plan (1) Acute respiratory failure with hypoxemia Code(s): J96.01 - ACUTE RESPIRATORY FAILURE WITH HYPOXIA Status: Acute (2) Pneumonia due to COVID-19 virus Code(s): U07.1 - COVID-19; J12.89 - OTHER VIRAL PNEUMONIA Status: Acute (3) Septic shock Code(s): A41.9 - SEPSIS, UNSPECIFIED ORGANISM; R65.21 - SEVERE SEPSIS WITH SEPTIC SHOCK Status: Acute (4) Acute renal failure Status: Acute (5) Atrial fibrillation Code(s): I48.91 - UNSPECIFIED ATRIAL FIBRILLATION Status: Chronic (6) Diabetes mellitus type 2 in nonobese Code(s): E11.9 - TYPE 2 DIABETES MELLITUS WITHOUT COMPLICATIONS Status: Chronic (7) Hypertension Code(s): I10 - ESSENTIAL (PRIMARY) HYPERTENSION Status: Chronic - Plan * Acute respiratory failure due to Pneumonia. He is also COVID positive he is requiring mechanical ventilation> the pneumonia is felt to be community [facility] ( [facility] and not due to COVID * Septic shock with multi-organ failure- final blood culture results noted- this appears to represent a contaminated sample- Will continue broad spectrum antibiotics, and Vancomycin * Urine culture is growing Proteus- sensitive to Cephalosporins AFIB with RVR- - Amiodarone drip Acute kidney injury- improved initially, - creatinine has plateaued. * DM- blood glucose has been elevated- continue to titrate insulin * Still no Surrogate decision maker, or family available. * -The palliative Care team is involved, and paperwork will be completed and filed with the court to obtain surrogate decision -maker status. * * -We will reduce any blood draw from now on and lab monitoring. DNAR, prognosis is grave We will check the labs every other day. Not sure aggressive medical intervention would make any difference in his care.
[2020-02-28] MEDS: Insulin Regular 300 UNITS/3 ML VIAL SC PRN ×3 (00:51→09:18)
[2020-02-28 04:34] LABS: Anion Gap 14 mmol/L (10-20); BUN (Urea Nitrogen) 114 mg/dL (8.4-25.7); Calc. Creatinine Clearance 39 mL/min (70-130); Calcium 8.5 mg/dL (7.8-10.44); Carbon Dioxide 17 mmol/L (23-31); Chloride 121 mmol/L (98-107); Estimated GFR-MDRD 25; Glucose 326 mg/dL (83-110); Hemoglobin 15.1 g/dL (14.0-18.0); Mean Corpuscular Hemoglobin 30.5 pg (27.0-31.0); Mean Corpuscular Volume 92.3 fL (78.0-98.0); Mean Platelet Volume 10.6 fL (7.4-10.4); Platelet Count 239 thou/uL (130-400); Potassium 4.4 mmol/L (3.5-5.1); Red Blood Cell (RBC) Count 4.95 mill/uL (4.70-6.10); Sodium 148 mmol/L (136-145); White Blood Cell (WBC) Count 30.7 thou/uL (4.8-10.8)
[2020-02-28 04:35] LABS: Band 17 % (5-11); Lymphocytes 4 % (21-51); MDiff Complete? YES; Metamyelocyte 1 % (0-0); Monocytes 4 % (0-10); Neutrophil 74 % (42-75); Platelet Morphology Comment Appears Adequate
[2020-02-28 04:55] VITALS: BMI 33.8
[2020-02-28] MEDS: Metoclopramide HCl 10 MG/2 ML VIAL IVP SCH ×3 (05:01→22:08)
[2020-02-28] MEDS: Sodium Chloride 0.9% 1,000 ML IV SCH (06:43)
[2020-02-28 08:43] LABS: Actual Bicarbonate (HCO3a) 16.2 mEq/L (22-28); Base Excess (BEa) -10.5 mEq/L (-2.0 to +3.0); CO2 Tension 38.8 mmHg (35.0-45.0); Calcium, Ionized (arterial) 1.33 mmol/L (1.12-1.30); Carboxyhemoglobin (COHb) 0.4 gm% (0.0-3.0); Hemoglobin (Hb) 15.9 g/dL (14.0-18.0); O2 Tension (PaO2), arterial 68.6 mmHg (> 70.0); Potassium - ABG Lab 4.52 mmol/L (3.70-5.30)
[2020-02-28 08:45] LABS: pH, Arterial 7.24 (7.35-7.45)
[2020-02-28] MEDS: Insulin Glargine 15 UNITS in Pre-Filled Syringe 1 EACH SC SCH ×2 (09:18→19:31)
[2020-02-28] MEDS: Heparin 5,000 UNITS/ML VIAL SC SCH ×2 (09:19→19:31)
[2020-02-28] MEDS: cefTRIAXone\\ROCEPHIN 1 GM in Sodium Chloride 0.9% 100 ML IVPB SCH (09:23)
[2020-02-28] MEDS: Dexamethasone 6 MG in Sodium Chloride 0.9% 50 ML IVPB SCH (09:24)
[2020-02-28] MEDS: Famotidine/PF 20 mg/2ml Vial SLOW IVP SCH (09:24)
--- NOTE | 2020-02-28 10:54 | PRG ---
DATE OF SERVICE: 02/28/2020 SUBJECTIVE: Alok Ernandez is a 74-year-old gentleman, this morning was intubated, vented, sedated. OBJECTIVE: VITAL SIGNS: Pulse 112, blood pressure 90/62, sats 97%, respirations 18. GENERAL: Remains encephalopathic. CHEST: Decreased breath sounds. Bilateral rhonchi. CARDIAC: Sinus tach. ABDOMEN: Soft. LABORATORY DATA: White count 30,000, H and H 15 and 47. PO2 of 68, pCO2 of 38, pH 7.24. Rate of 8, PEEP of 5, 40% . Creatinine is 2, BUN is 114, glucose 329. ASSESSMENT: 1. Multiorgan failure. 2. Shock, respiratory failure, renal failure, advanced age, dementia. There are no family members to discuss the patient's ongoing care. As per Palliative Care, with the help of Administration they made him a DNR. I am going to discontinue the Decadron since his blood sugars remain markedly elevated. I am going to discontinue daily labs. We are not addressing any of his issues at this time. Apparently, he was started sometime on amiodarone for rapid atrial fibrillation. It is unclear whether he is starting any feedings at this stage. One-half hour of critical time. Job ID: [id number]
--- NOTE | 2020-02-28 15:26 | PDOC.HOSPP ---
- Subjective Encounter Date: 02/28/20 Encounter Time: 11:30 Subjective: Patient seen. Discussed with RN. No labs to be done. Mostly comfort care approach has been adopted today. He is still on the vent. Amiodarone drip running. - Objective Vital Signs & Weight: Vital Signs (12 hours) Temp Pulse Resp BP 02/28/20 14:48 108 H 02/28/20 14:00 18 02/28/20 13:24 110 H 85/53 L 02/28/20 12:00 20 02/28/20 11:51 98.1 F 02/28/20 10:23 110 H 84/55 L 02/28/20 10:00 17 02/28/20 08:13 111 H 96/61 02/28/20 08:00 97.1 F L 38 H 02/28/20 06:00 19 02/28/20 04:00 98.0 F 19 02/28/20 03:28 109 H Weight Admit Weight 227 lb Weight 242 lb 8.136 oz Most Recent Monitor Data Heart Rate from ECG 108 NIBP 89/52 NIBP BP-Mean 64 Respiration from ECG 19 SpO2 98 I&O: 02/27/20 02/28/20 02/29/20 06:59 06:59 06:59 Intake Total 3184.1 0 Output Total 1550 265 Balance 1634.1 -265 Result Diagrams: 02/28/20 03:40 02/28/20 03:40 Additional Labs: Accuchecks 02/27/20 02/27/20 21:27 15:46 POC Glucose 239 H 298 H Hospitalist ROS - Medication Medications: Active Medications Generic Name Dose Route Start Last Admin Trade Name Freq PRN Reason Stop Dose Admin Acetaminophen 650 mg 02/20/20 19:42 02/21/20 06:53 Acetaminophen 650 Mg Suppository [place] 650 mg Q4H PRN Administration Headache/Fever/Mild Pain (1-3) Famotidine 20 mg 02/21/20 09:00 02/28/20 09:24 Famotidine/Pf 20 Mg/2ml Vial SLOW IVP 20 mg DAILY BEBO Administration Heparin Sodium (Porcine) 5,000 units 02/21/20 21:00 02/28/20 09:19 Heparin 5,000 Units/Ml Vial SC 5,000 units BID BEBO Administration Norepinephrine Bitartrate 16 266 mls @ 0 mls/hr 02/21/20 04:45 02/24/20 17:33 mg/ Dextrose/Water IVPB 266 mls INF BEBO Administration Protocol Titrate Vasopressin 20 unit/ 51 mls @ 0 mls/hr 02/21/20 05:15 02/21/20 05:06 Miscellaneous Medication 1 IV 51 mls each/ Sodium Chloride INF BEBO Administration Protocol As Directed Epinephrine 4 mg/ Dextrose/ 254 mls @ 0 mls/hr 02/21/20 05:30 02/21/20 05:30 Water IV 254 mls INF BEBO Administration Protocol Titrate Fentanyl Citrate 2,000 mcg/ 100 mls @ 0 mls/hr 02/21/20 20:45 02/27/20 22:37 Sodium Chloride IV 03/22/20 20:45 100 mls INF BEBO Administration Protocol Per Protocol Insulin Glargine 15 units/ 0.15 mls @ 0 mls/hr 02/24/20 09:00 02/28/20 09:18 Miscellaneous Medication SC 0.15 mls BID BEBO Administration Sodium Chloride 1,000 mls @ 50 mls/hr 02/24/20 08:30 02/28/20 06:43 Normal Saline 0.9% IV 1,000 mls .Q20H BEBO Administration Ceftriaxone Sodium 1 gm/ 100 mls @ 200 mls/hr 02/24/20 09:00 02/28/20 09:23 Sodium Chloride IVPB 100 mls Q24HR BEBO Administration Amiodarone HCl 450 mg/ 259 mls @ 0 mls/hr 02/25/20 12:30 02/27/20 17:08 Miscellaneous Medication 1 IVPB 259 mls each/ Dextrose/Water INF BEBO Administration Protocol As Directed Insulin Human Regular 0 units 02/20/20 19:52 02/28/20 09:18 Insulin Regular 300 Units/3 Ml Vial SC 4 unit .MILD SLIDING SCALE PRN Administration Mild Correctional Scale Lorazepam 2 mg 02/21/20 20:45 02/25/20 20:54 Lorazepam 2 Mg/Ml Vial SLOW IVP 03/22/20 20:45 2 mg Q1H PRN Administration Breakthrough agitation Metoclopramide HCl 5 mg 02/24/20 14:00 02/28/20 15:04 Metoclopramide Hcl 10 Mg/2 Ml Vial IVP 5 mg Q8HR BEBO Administration Propofol 1,000 mg 02/21/20 20:45 02/25/20 09:35 Propofol 1,000 Mg/100 Ml Vial IV 03/22/20 20:45 1,000 mg INF PRN Administration TO ACHIEVE GOAL RASS Protocol Sodium Chloride 10 ml 02/28/20 09:00 02/28/20 09:24 Flush - Normal Saline 10 Ml Syringe IVF 10 ml Q12HR BEBO Administration - Exam General - other findings: On the vent Eye: PERRL ENT: normocephalic atraumatic Neck: supple Hosp A/P - Plan (1) Acute respiratory failure with hypoxemia Code(s): J96.01 - ACUTE RESPIRATORY FAILURE WITH HYPOXIA Status: Acute (2) Pneumonia due to COVID-19 virus Code(s): U07.1 - COVID-19; J12.89 - OTHER VIRAL PNEUMONIA Status: Acute (3) Septic shock Code(s): A41.9 - SEPSIS, UNSPECIFIED ORGANISM; R65.21 - SEVERE SEPSIS WITH SEPTIC SHOCK Status: Acute (4) Acute renal failure Status: Acute (5) Atrial fibrillation Code(s): I48.91 - UNSPECIFIED ATRIAL FIBRILLATION Status: Chronic (6) Diabetes mellitus type 2 in nonobese Code(s): E11.9 - TYPE 2 DIABETES MELLITUS WITHOUT COMPLICATIONS Status: Chronic (7) Hypertension Code(s): I10 - ESSENTIAL (PRIMARY) HYPERTENSION Status: Chronic - Plan * Acute respiratory failure due to Pneumonia. He is also COVID positive he is requiring mechanical ventilation> the pneumonia is felt to be community acq uired ( albeit from the [facility]) and not due to COVID * Septic shock with multi-organ failure- final blood culture results noted- this appears to represent a contaminated sample- Will continue broad spectrum antibiotics, and Vancomycin * Urine culture is growing Proteus- sensitive to Cephalosporins AFIB with RVR- - Amiodarone drip Acute kidney injury- improved initially, - creatinine has plateaued. * DM- blood glucose has been elevated- continue to titrate insulin * Still no Surrogate decision maker, or family available. * -The palliative Care team is involved, and paperwork will be completed and filed with the court to obtain surrogate decision -maker status. * * -We will reduce any blood draw from now on and lab monitoring. DNAR, prognosis is grave We will check the labs every other day. Not sure aggressive medical intervention would make any difference in his care. 2nd comfort care No labs Poor prognosis
[2020-02-28] MEDS: fentaNYL Citrate/PF 2,000 MCG in Sodium Chloride 0.9% 60 ML IV SCH (17:13)
[2020-02-28] MEDS: Amiodarone 450 MG, Admixture Fee 1 EACH in Dextrose 5% in Water 250 ML IVPB SCH (21:07)
[2020-02-29] MEDS: Metoclopramide HCl 10 MG/2 ML VIAL IVP SCH ×3 (05:53→20:50)
[2020-02-29] MEDS: Heparin 5,000 UNITS/ML VIAL SC SCH ×2 (08:18→20:50)
[2020-02-29] MEDS: Famotidine/PF 20 mg/2ml Vial SLOW IVP SCH (08:19)
--- NOTE | 2020-02-29 10:55 | PRG ---
DATE OF SERVICE: SUBJECTIVE: Alok Ernandez is a 74-year-old gentleman remains in ICU intubated in the vent on 100 of Fentanyl. He was made a DNR. OBJECTIVE: VITAL SIGNS: His temperature is 99, his pulse 101. On 50% FiO2 sats are 92%. He is apparently tracking somewhat. CHEST: Bilateral rhonchi, crackles. CARDIAC: Normal S1, S2. LABORATORY DATA: All his labs and x-rays were discontinued. ASSESSMENT: 1. Respiratory failure. 2. [id number]. 3. Metabolic encephalopathy. 4. Coronavirus-positive pneumonia. I will try and decrease the fentanyl to 50. 5. Comfort care. Question is whether he is a candidate for extubation since he has no family available. One-half hour of critical time. Job ID: [id number]
[2020-02-29] MEDS ORDERED: SYSTANE GEL OPHTH DROPS 10 ML EA EYE PRN (12:01)
[2020-02-29] MEDS: cefTRIAXone\\ROCEPHIN 1 GM in Sodium Chloride 0.9% 100 ML IVPB SCH (12:03)
[2020-02-29] MEDS: Sodium Chloride 0.9% 1,000 ML IV SCH (12:03)
[2020-02-29] MEDS: Insulin Glargine 15 UNITS in Pre-Filled Syringe 1 EACH SC SCH ×2 (12:14→20:50)
[2020-02-29] MEDS: fentaNYL Citrate/PF 2,000 MCG in Sodium Chloride 0.9% 60 ML IV SCH (12:35)
[2020-02-29] MEDS: Amiodarone 450 MG, Admixture Fee 1 EACH in Dextrose 5% in Water 250 ML IVPB SCH (13:44)
--- NOTE | 2020-02-29 14:13 | PDOC.HOSPP ---
- Subjective Encounter Date: 02/29/20 Encounter Time: 10:40 Subjective: Patient seen he is still on vent. We decided not to have any more labs. It appears his urine output for the last 24 hours is only 700 mL. - Objective Vital Signs & Weight: Vital Signs (12 hours) Temp Pulse Resp BP Pulse Ox 02/29/20 13:48 91 02/29/20 12:00 98.0 F 15 02/29/20 10:21 96 88/53 L 02/29/20 10:00 16 02/29/20 08:20 101 H 02/29/20 08:00 98.5 F 16 94 L 02/29/20 06:00 16 02/29/20 04:00 99.0 F 16 Weight Admit Weight 227 lb Weight 244 lb 11.41 oz Most Recent Monitor Data Heart Rate from ECG 95 NIBP 100/51 NIBP BP-Mean 67 Respiration from ECG 17 SpO2 93 I&O: 02/28/20 02/29/20 03/01/20 06:59 06:59 06:59 Intake Total 3184.1 3044.9 30 Output Total 1550 708 60 Balance 1634.1 2336.9 -30 Result Diagrams: 02/28/20 03:40 02/28/20 03:40 Additional Labs: Accuchecks 02/29/20 12:13 POC Glucose 273 H Hospitalist ROS - Medication Medications: Active Medications Generic Name Dose Route Start Last Admin Trade Name Freq PRN Reason Stop Dose Admin Acetaminophen 650 mg 02/20/20 19:42 02/21/20 06:53 Acetaminophen 650 Mg Suppository [place] 650 mg Q4H PRN Administration Headache/Fever/Mild Pain (1-3) Famotidine 20 mg 02/21/20 09:00 02/29/20 08:19 Famotidine/Pf 20 Mg/2ml Vial SLOW IVP 20 mg DAILY BEBO Administration Heparin Sodium (Porcine) 5,000 units 02/21/20 21:00 02/29/20 08:18 Heparin 5,000 Units/Ml Vial SC 5,000 units BID BEBO Administration Norepinephrine Bitartrate 16 266 mls @ 0 mls/hr 02/21/20 04:45 02/24/20 17:33 mg/ Dextrose/Water IVPB 266 mls INF BEBO Administration Protocol Titrate Vasopressin 20 unit/ 51 mls @ 0 mls/hr 02/21/20 05:15 02/21/20 05:06 Miscellaneous Medication 1 IV 51 mls each/ Sodium Chloride INF BEBO Administration Protocol As Directed Epinephrine 4 mg/ Dextrose/ 254 mls @ 0 mls/hr 02/21/20 05:30 02/21/20 05:30 Water IV 254 mls INF BEBO Administration Protocol Titrate Fentanyl Citrate 2,000 mcg/ 100 mls @ 0 mls/hr 02/21/20 20:45 02/29/20 12:35 Sodium Chloride IV 03/22/20 20:45 100 mls INF BEBO Administration Protocol Per Protocol Insulin Glargine 15 units/ 0.15 mls @ 0 mls/hr 02/24/20 09:00 02/29/20 12:14 Miscellaneous Medication SC 0.15 mls BID BEBO Administration Sodium Chloride 1,000 mls @ 50 mls/hr 02/24/20 08:30 02/29/20 12:03 Normal Saline 0.9% IV 1,000 mls .Q20H BEBO Administration Ceftriaxone Sodium 1 gm/ 100 mls @ 200 mls/hr 02/24/20 09:00 02/29/20 12:03 Sodium Chloride IVPB 100 mls Q24HR BEBO Administration Amiodarone HCl 450 mg/ 259 mls @ 0 mls/hr 02/25/20 12:30 02/29/20 13:44 Miscellaneous Medication 1 IVPB 259 mls each/ Dextrose/Water INF BEBO Administration Protocol As Directed Insulin Human Regular 0 units 02/20/20 19:52 02/28/20 09:18 Insulin Regular 300 Units/3 Ml Vial SC 4 unit .MILD SLIDING SCALE PRN Administration Mild Correctional Scale Lorazepam 2 mg 02/21/20 20:45 02/25/20 20:54 Lorazepam 2 Mg/Ml Vial SLOW IVP 03/22/20 20:45 2 mg Q1H PRN Administration Breakthrough agitation Metoclopramide HCl 5 mg 02/24/20 14:00 02/29/20 14:02 Metoclopramide Hcl 10 Mg/2 Ml Vial IVP 5 mg Q8HR BEBO Administration Propofol 1,000 mg 02/21/20 20:45 02/25/20 09:35 Propofol 1,000 Mg/100 Ml Vial IV 03/22/20 20:45 1,000 mg INF PRN Administration TO ACHIEVE GOAL RASS Protocol Sodium Chloride 10 ml 02/28/20 09:00 02/29/20 12:05 Flush - Normal Saline 10 Ml Syringe IVF 10 ml Q12HR BEBO Administration - Exam General - other findings: On vent and sedated Psychiatric: not oriented Hosp A/P - Plan (1) Acute respiratory failure with hypoxemia Code(s): J96.01 - ACUTE RESPIRATORY FAILURE WITH HYPOXIA Status: Acute (2) Pneumonia due to COVID-19 virus Code(s): U07.1 - COVID-19; J12.89 - OTHER VIRAL PNEUMONIA Status: Acute (3) Septic shock Code(s): A41.9 - SEPSIS, UNSPECIFIED ORGANISM; R65.21 - SEVERE SEPSIS WITH SEPTIC SHOCK Status: Acute (4) Acute renal failure Status: Acute (5) Atrial fibrillation Code(s): I48.91 - UNSPECIFIED ATRIAL FIBRILLATION Status: Chronic (6) Diabetes mellitus type 2 in nonobese Code(s): E11.9 - TYPE 2 DIABETES MELLITUS WITHOUT COMPLICATIONS Status: Chronic (7) Hypertension Code(s): I10 - ESSENTIAL (PRIMARY) HYPERTENSION Status: Chronic - Plan * Acute respiratory failure due to Pneumonia. He is also COVID positive he is requiring mechanical ventilation> the pneumonia is felt to be community acquired ( albeit from the [facility]) and not due to COVID * Septic shock with multi-organ failure- final blood culture results noted- this appears to represent a contaminated sample- Will continue broad spectrum antibiotics, and Vancomycin * Urine culture is growing Proteus- sensitive to Cephalosporins AFIB with RVR- - Amiodarone drip Acute kidney injury- improved initially, - creatinine has plateaued. * DM- blood glucose has been elevated- continue to titrate insulin * Still no Surrogate decision maker, or family available. * -The palliative Care team is involved, and paperwork will be completed and filed with the court to obtain surrogate decision -maker status. * * -We will reduce any blood draw from now on and lab monitoring. comfort care No labs Poor prognosis Appreciate the help from the critical care. per palliative - Bruna Yang and [facility]лександ[facility] Dave [facility] to assist with process of contacting courts for surrogate decision maker. -? court Has to give us the permission for withdrawal of the care from the [facility].
[2020-03-01] MEDS: Amiodarone 450 MG, Admixture Fee 1 EACH in Dextrose 5% in Water 250 ML IVPB SCH ×2 (03:29→17:16)
[2020-03-01] MEDS: Metoclopramide HCl 10 MG/2 ML VIAL IVP SCH ×3 (05:20→22:42)
[2020-03-01] MEDS: Famotidine/PF 20 mg/2ml Vial SLOW IVP SCH (08:05)
[2020-03-01] MEDS: cefTRIAXone\\ROCEPHIN 1 GM in Sodium Chloride 0.9% 100 ML IVPB SCH (08:06)
[2020-03-01] MEDS: Heparin 5,000 UNITS/ML VIAL SC SCH ×2 (08:06→19:28)
[2020-03-01] MEDS: Insulin Glargine 15 UNITS in Pre-Filled Syringe 1 EACH SC SCH ×2 (08:45→19:28)
--- NOTE | 2020-03-01 11:07 | PRG ---
DATE OF SERVICE: 03/01/2020 SUBJECTIVE: Alok Ernandez is a 74-year-old gentleman, remains in the ICU on the vent. He is day #9 today. In the process of discussing whether we can be extubate him and then reintubate him again. He is on 50 of fentanyl. OBJECTIVE: VITAL SIGNS: Blood pressure 100/42, temperature is 96, . CHEST: Rhonchi. CARDIAC: Normal S1 and S2. No gallops. ABDOMEN: Soft. LABORATORY DATA: All his labs and x-rays were discontinued. IMPRESSION AND PLAN: [place] positive pneumonia, congestive heart failure, diabetes. PLAN: Stop all sedation, maybe consider extubation after we talk to Palliative Care to see whether it is legal to do so. Comfort care. Job ID: [id number]
[2020-03-01] MEDS: Sodium Chloride 0.9% 1,000 ML IV SCH (11:16)
--- NOTE | 2020-03-01 13:13 | PDOC.HOSPP ---
- Subjective Encounter Date: 03/01/20 Encounter Time: 10:30 Subjective: Patient remains on vent. Talk to the RN. Plan to extubate him and put him on BiPAP versus nasal cannula. And possible comfort care. He is still on amiodarone drip. - Objective Vital Signs & Weight: Vital Signs (12 hours) Temp Resp Pulse Ox 03/01/20 12:00 97.5 F L 13 03/01/20 10:00 10 L 03/01/20 08:00 96.8 F L 10 L 94 L 03/01/20 06:00 10 L 03/01/20 04:00 96.9 F L 13 03/01/20 02:00 14 Weight Admit Weight 227 lb Weight 245 lb 5.992 oz Most Recent Monitor Data Heart Rate from ECG 80 NIBP 82/39 NIBP BP-Mean 53 Respiration from ECG 18 SpO2 89 I&O: 02/29/20 03/01/20 03/02/20 06:59 06:59 06:59 Intake Total 3044.9 2453 100 Output Total 708 390 11 Balance 2336.9 2063 89 Result Diagrams: 02/28/20 03:40 02/28/20 03:40 Additional Labs: Accuchecks 02/28/20 02/28/20 02/28/20 08:37 00:49 00:47 POC Glucose 286 H 271 H 284 H Hospitalist ROS - Medication Medications: Active Medications Generic Name Dose Route Start Last Admin Trade Name Freq PRN Reason Stop Dose Admin Acetaminophen 650 mg 02/20/20 19:42 02/21/20 06:53 Acetaminophen 650 Mg Suppository KS 650 mg Q4H PRN Administration Headache/Fever/Mild Pain (1-3) Famotidine 20 mg 02/21/20 09:00 03/01/20 08:05 Famotidine/Pf 20 Mg/2ml Vial SLOW IVP 20 mg DAILY BEBO Administration Heparin Sodium (Porcine) 5,000 units 02/21/20 21:00 03/01/20 08:06 Heparin 5,000 Units/Ml Vial SC 5,000 units BID BEBO Administration Norepinephrine Bitartrate 16 266 mls @ 0 mls/hr 02/21/20 04:45 02/24/20 17:33 mg/ Dextrose/Water IVPB 266 mls INF BEBO Administration Protocol Titrate Vasopressin 20 unit/ 51 mls @ 0 mls/hr 02/21/20 05:15 02/21/20 05:06 Miscellaneous Medication 1 IV 51 mls each/ Sodium Chloride INF BEBO Administration Protocol As Directed Epinephrine 4 mg/ Dextrose/ 254 mls @ 0 mls/hr 02/21/20 05:30 02/21/20 05:30 Water IV 254 mls INF BEBO Administration Protocol Titrate Fentanyl Citrate 2,000 mcg/ 100 mls @ 0 mls/hr 02/21/20 20:45 02/29/20 12:35 Sodium Chloride IV 03/22/20 20:45 100 mls INF BEBO Administration Protocol Per Protocol Insulin Glargine 15 units/ 0.15 mls @ 0 mls/hr 02/24/20 09:00 03/01/20 08:45 Miscellaneous Medication SC 0.15 mls BID BEBO Administration Sodium Chloride 1,000 mls @ 50 mls/hr 02/24/20 08:30 03/01/20 11:16 Normal Saline 0.9% IV 1,000 mls .Q20H BEBO Administration Ceftriaxone Sodium 1 gm/ 100 mls @ 200 mls/hr 02/24/20 09:00 03/01/20 08:06 Sodium Chloride IVPB 100 mls Q24HR BEBO Administration Amiodarone HCl 450 mg/ 259 mls @ 0 mls/hr 02/25/20 12:30 03/01/20 03:29 Miscellaneous Medication 1 IVPB 259 mls each/ Dextrose/Water INF BEBO Administration Protocol As Directed Insulin Human Regular 0 units 02/20/20 19:52 02/28/20 09:18 Insulin Regular 300 Units/3 Ml Vial SC 4 unit .MILD SLIDING SCALE PRN Administration Mild Correctional Scale Lorazepam 2 mg 02/21/20 20:45 02/25/20 20:54 Lorazepam 2 Mg/Ml Vial SLOW IVP 03/22/20 20:45 2 mg Q1H PRN Administration Breakthrough agitation Metoclopramide HCl 5 mg 02/24/20 14:00 03/01/20 05:20 Metoclopramide Hcl 10 Mg/2 Ml Vial IVP 5 mg Q8HR BEBO Administration Propofol 1,000 mg 02/21/20 20:45 02/25/20 09:35 Propofol 1,000 Mg/100 Ml Vial IV 03/22/20 20:45 1,000 mg INF PRN Administration TO ACHIEVE GOAL RASS Protocol Propylene Glycol 0 ml 02/29/20 12:01 02/29/20 14:23 Systane Gel Ophth Drops 10 Ml EA EYE 2 drop PRN PRN Administration Dry Eyes Sodium Chloride 10 ml 02/28/20 09:00 03/01/20 08:50 Flush - Normal Saline 10 Ml Syringe IVF 10 ml Q12HR BEBO Administration - Exam General - other findings: On vent Eye: PERRL ENT: normocephalic atraumatic Neck: supple Psychiatric: not oriented Hosp A/P - Plan (1) Acute respiratory failure with hypoxemia Code(s): J96.01 - ACUTE RESPIRATORY FAILURE WITH HYPOXIA Status: Acute (2) Pneumonia due to COVID-19 virus Code(s): U07.1 - COVID-19; J12.89 - OTHER VIRAL PNEUMONIA Status: Acute (3) Septic shock Code(s): A41.9 - SEPSIS, UNSPECIFIED ORGANISM; R65.21 - SEVERE SEPSIS WITH SEPTIC SHOCK Status: Acute (4) Acute renal failure Status: Acute (5) Atrial fibrillation Code(s): I48.91 - UNSPECIFIED ATRIAL FIBRILLATION Status: Chronic (6) Diabetes mellitus type 2 in nonobese Code(s): E11.9 - TYPE 2 DIABETES MELLITUS WITHOUT COMPLICATIONS Status: Chronic (7) Hypertension Code(s): I10 - ESSENTIAL (PRIMARY) HYPERTENSION Status: Chronic - Plan * Acute respiratory failure due to Pneumonia. He is also COVID positive he is requiring mechanical ventilation> the pneumonia is felt to be community acquired ( albeit from the long-term) and not due to COVID * Septic shock with multi-organ failure- final blood culture results noted- this appears to represent a contaminated sample- Will continue broad spectrum antibiotics, and Vancomycin * Urine culture is growing Proteus- sensitive to Cephalosporins AFIB with RVR- - Amiodarone drip Acute kidney injury- improved initially, - creatinine has plateaued. * DM- blood glucose has been elevated- continue to titrate insulin * Still no Surrogate decision maker, or family available. * -The palliative Care team is involved, and paperwork will be completed and filed with the court to obtain surrogate decision -maker status. * * -We will reduce any blood draw from now on and lab monitoring. comfort care No labs Poor prognosis Appreciate the help from the critical care. per palliative - D Trey and [facility] to assist with process of contacting cour ts for surrogate decision maker. -? court Has to give us the permission for withdrawal of the care from the vent. 4th He is still on amiodarone drip. Patient remains on vent. Talk to the RN. Plan to extubate him and put him on BiPAP versus nasal cannula. And possible comfort care.
[2020-03-01] MEDS ORDERED: Sodium Chloride 0.9% 250 ML IV SCH (15:45)
[2020-03-01 16:37] VITALS: BP 74/32
[2020-03-01] MEDS: Insulin Regular 300 UNITS/3 ML VIAL SC PRN (20:44)
[2020-03-02] MEDS: Sodium Chloride 0.9% 1,000 ML IV SCH (02:16)
[2020-03-02] MEDS: Insulin Regular 300 UNITS/3 ML VIAL SC PRN (04:17)
[2020-03-02] MEDS: Metoclopramide HCl 10 MG/2 ML VIAL IVP SCH (05:31)
[2020-03-02 06:24] VITALS: TEMP 98.2
[2020-03-02] MEDS: Amiodarone 450 MG, Admixture Fee 1 EACH in Dextrose 5% in Water 250 ML IVPB SCH (06:58)
--- NOTE | 2020-03-02 15:34 | PDOC.DS.DS ---
Provider - Provider Date of Admission: 02/20/20 20:19 Admitting Provider: Junior Zamorano MD Primary Care Physician: Unknown Course - Hospital Course Hospital Course: (1) Acute respiratory failure with hypoxemia Code(s): J96.01 - ACUTE RESPIRATORY FAILURE WITH HYPOXIA Status: Acute (2) Pneumonia due to COVID-19 virus Code(s): U07.1 - COVID-19; J12.89 - OTHER VIRAL PNEUMONIA Status: Acute (3) Septic shock Code(s): A41.9 - SEPSIS, UNSPECIFIED ORGANISM; R65.21 - SEVERE SEPSIS WITH SEPTIC SHOCK Status: Acute (4) Acute renal failure Status: Acute (5) Atrial fibrillation Code(s): I48.91 - UNSPECIFIED ATRIAL FIBRILLATION Status: Chronic (6) Diabetes mellitus type 2 in nonobese Code(s): E11.9 - TYPE 2 DIABETES MELLITUS WITHOUT COMPLICATIONS Status: Chronic (7) Hypertension Code(s): I10 - ESSENTIAL (PRIMARY) HYPERTENSION Status: Chronic - Plan * Acute respiratory failure due to Pneumonia. He is also COVID positive he is requiring mechanical ventilation> the pneumonia is felt to be community acquired ( albeit from the jail) and not due to COVID * Septic shock with multi-organ failure- final blood culture results noted- this appears to represent a contaminated sample- Will continue broad spectrum a ntibiotics, and Vancomycin * Urine culture is growing Proteus- sensitive to Cephalosporins AFIB with RVR- - Amiodarone drip Acute kidney injury- improved initially, - creatinine has plateaued. * DM- blood glucose has been elevated- continue to titrate insulin * Still no Surrogate decision maker, or family available. * -The palliative Care team is involved, and paperwork will be completed and filed with the court to obtain surrogate decision -maker status. * * -We will reduce any blood draw from now on and lab monitoring. comfort care No labs Poor prognosis On morning of fifth, patient went into asystole on 7:15 AM despite being on ventilator. Ventilator turned off patient disconnected from the monitor. Time of demise 7:15 AM Banner of demise Covid pneumonia Secondary cause atrial fibrillation renal failure and septic shock. Resuscitation Status: 02/24/20 14:41 Resuscitation Status Routine Resuscitation Status: DNAR: NO Resuscitation Discussed with: family/ dr. conroy and dr stu - Labs Lab Results: 02/28/20 03:40 02/28/20 03:40 Microbiology - Entire Visit 02/20/20 16:44 Venous blood - Right Hand Blood Culture - Final Staphylococcus epidermidis Staphylococcus capitis 02/20/20 16:44 Venous blood - Left Foot Blood Culture - Final Staphylococcus epidermidis Staphylococcus capitis Staphylococcus caprae 02/20/20 20:25 Urine dobbs catheter Urine Culture - Final Proteus mirabilis - Physical Exam Vitals: Vital Signs (12 hours) Temp Resp 03/02/20 06:00 12 03/02/20 05:00 98.2 F 03/02/20 04:00 9 L Weight Admit Weight 227 lb Weight 245 lb 5.992 oz Most Recent Monitor Data Heart Rate from ECG 60 NIBP 65/33 NIBP BP-Mean 43 Respiration from ECG 18 SpO2 80 Physical Exam: The patient was seen and examined on the day of discharge. Plan - Discharge Medications Home Medications: Medication Instructions Recorded Confirmed Type Amiodarone HCl [Pacerone] BID 10/22/13 10/22/13 History Aspirin [Aspirin EC] 325 mg PO DAILY 10/22/13 02/22/20 History Atorvastatin Calcium [Lipitor] 80 mg PO DAILY 10/22/13 02/22/20 History Carvedilol [Coreg] 25 mg PO BID 10/22/13 02/22/20 History Furosemide 20 mg PO DAILY 10/22/13 02/22/20 History Levothyroxine Sodium [Synthroid] 10/22/13 10/22/13 History Losartan Potassium 50 mg PO BID 10/22/13 02/22/20 History metFORMIN [Glucophage] 500 mg PO BID 10/22/13 02/22/20 History Allergies: No Known Allergies Allergy (Unverified 02/20/20 20:04) - Follow up Plan Referrals: Unknown,Unknown [Primary Care Provider] - Disposition: Quality - Care Measures CORE MEASURES:: N/A
== END 2020-03-02 07:22 | disposition expired | DRG 870 ==
LOC: ERS 14:55 → ERHOLD 20:19 → CCU 02-21 07:39
PROVIDERS: ADMIT Student in an Organized Health Care Education/Training Program; ATTEND Internal Medicine
PROC: 5A1955Z Respiratory Ventilation, Greater than 96 Consecutive Hours (ICD-10-PCS; principal; 2020-02-20)
PROC: 0BH17EZ Insertion of Endotracheal Airway into Trachea, Via Natural or Artificial Opening (ICD-10-PCS; 2020-02-20)
PROC: 8E0ZXY6 Isolation (ICD-10-PCS; 2020-02-20)
PROC: 02HV33Z Insertion of Infusion Device into Superior Vena Cava, Percutaneous Approach (ICD-10-PCS; 2020-02-20)
PROC: 3E043XZ Introduction of Vasopressor into Central Vein, Percutaneous Approach (ICD-10-PCS; 2020-02-20)
DX: A41.89 Other specified sepsis (principal); U07.1 COVID-19; J12.89 Other viral pneumonia; J96.01 Acute respiratory failure with hypoxia; R65.21 Severe sepsis with septic shock; G93.41 Metabolic encephalopathy; N17.9 Acute kidney failure, unspecified; I48.20 Chronic atrial fibrillation, unspecified; E87.0 Hyperosmolality and hypernatremia; E87.2 Acidosis; I42.9 Cardiomyopathy, unspecified; I13.0 Hypertensive heart and chronic kidney disease with heart failure and stage 1 through stage 4 chronic kidney disease, or unspecified chronic kidney disease; Z66 Do not resuscitate; Z51.5 Encounter for palliative care; E03.9 Hypothyroidism, unspecified; H40.9 Unspecified glaucoma; I50.9 Heart failure, unspecified; F03.90 Unspecified dementia, unspecified severity, without behavioral disturbance, psychotic disturbance, mood disturbance, and anxiety; E11.22 Type 2 diabetes mellitus with diabetic chronic kidney disease; N18.9 Chronic kidney disease, unspecified; Z79.82 Long term (current) use of aspirin; Z79.890 Hormone replacement therapy; Z79.84 Long term (current) use of oral hypoglycemic drugs; Z79.899 Other long term (current) drug therapy; Z79.01 Long term (current) use of anticoagulants
CPT/HCPCS: 31500; 36415; 36416; 36556; 51702; 70450; 71045; 80048; 80053; 80202; 81003; 81015; 82553; 82805; 83605; 83880; 84484; 85025; 85060; 87040; 87077; 87086; 87149; 87186; 93005; 94002; 94003; 96365; 96366; 96367; 96368; 96375; 99292; J0171; J0282; J0692; J0696; J1100; J1644; J1720; J1815; J2060; J2704; J2765; J3010; J3370; J3490; J7030; J7050; J7070; P9045; P9047; S0028